=== PATIENT | male | born 1925 | race Caucasian/White ===

== ENCOUNTER 2016-06-20 13:42 | Inpatient (IN) | payer MEDICARE ==
[2016-06-20] MEDS ORDERED: Zofran 4 MG/2 ML VIAL IV ONE (14:12)
[2016-06-20] MEDS ORDERED: Hydromorphone 1 mg/ml Ampule IV ONE ×2 (14:12→18:19)
[2016-06-20] MEDS ORDERED: Hydromorphone 1 mg/ml Ampule ONE ×2 (14:15→18:20)
[2016-06-20] MEDS ORDERED: Sodium Chloride 0.9% 1000 ML 1,000 ML IV SCH (14:15)
[2016-06-20] MEDS ORDERED: Zofran 4 MG/2 ML VIAL ONE (14:15)
[2016-06-20] MEDS ORDERED: Sodium Chloride 0.9% 1000 ML 1,000 ML ONE (14:15)
[2016-06-20 14:37] LABS: BASOPHIL % 0.1 % (0.0-0.4); Granulocytes % 82.9 % (36.0-66.0); Lymphocytes % 7.9 % (24.0-44.0); Mean Cell Volume 89.9 fl (78-100); Mean Corpuscular Hemoglobin 28.7 pg (26-32); Mean Platelet Volume 8.9 fl (6-9.5); Monocytes % 8.1 % (0.0-12.0); Platelet Count 278 K/mm3 (150-450); Red Blood Count 3.76 M/mm3 (4.1-5.6); Red Cell Distribution Width 14.7 % (11.5-14.0); White Blood Count 10.6 K/mm3 (4.0-10.5)
--- NOTE | 2016-06-20 14:44 | ERPHSYRPT ---
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 HAS NO PAIN RELIEF AFTER TAKING METHADONE AND PERCOCET. DENIES FEVER, EMESIS OR DIARRHEA. Timing/Duration: day(s) Activities at Onset: none Quality: cramping Abdominal Pain Onset Location: suprapubic Pain Radiation: no radiation Severity of Pain-Max: moderate Severity of Pain-Current: moderate Modifying Factors: Improves With: nothing Associated Symptoms: other (BLADDER SPASMS) Allergies/Adverse Reactions: oxybutynin Allergy (Intermediate, Verified 06/20/16 13:58) ceftriaxone sodium [From Rocephin] Allergy (Mild, Verified 06/20/16 13:58) rash peanut Allergy (Mild, Verified 06/20/16 13:58) Rash Penicillins Allergy (Mild, Verified 06/20/16 13:58) rash primidone Allergy (Mild, Verified 06/20/16 13:58) Swelling selegiline Allergy (Mild, Verified 06/20/16 13:58) Swelling topiramate Allergy (Mild, Verified 06/20/16 13:58) Swelling levomilnacipran HCl [From Fetzima] Allergy (Verified 06/20/16 13:58) nitrofurantoin [From Macrobid] Allergy (Verified 06/20/16 13:58) nitrofurantoin macrocrystalline [From Macrobid] Allergy (Verified 06/20/16 13:58 ) nitroglycerin Allergy (Verified 06/20/16 13:58) unsure of reaction leflunomide Adverse Reaction (Intermediate, Verified 06/20/16 13:58) Sulfa (Sulfonamide Antibiotics) [Sulfa(Sulfonamide Antibiotics)] Adverse Reaction (Mild, Verified 06/20/16 13:58) frequent voiding vancomycin Adverse Reaction (Mild, Verified 06/20/16 13:58) shakes meperidine HCl [From Demerol] Adverse Reaction (Verified 06/20/16 13:58) low bp pantoprazole sodium [From Protonix] Adverse Reaction (Verified 06/20/16 13:58) Home Medications: Albuterol Sulfate [Albuterol Sulfate Hfa] 2 puffs IH Q4HPRN PRN #0 10/29/11 [ History] Albuterol/Ipratropium 3ml Neb* [DUONEB 0.5-3 MG/3 ml Neb] 3 ml NEBULIZE UD #0 10/29/11 [History] Prednisone 5 mg [Deltasone 5 mg] 20 mg PO DAILY #0 10/29/11 [History] Sennosides/Docusate Sodium [Stool Softener Tablet] 1 each PO TID 10/30/11 [ History] Apixaban [Eliquis] 2.5 mg PO BID 04/14/15 [History] Tamsulosin HCl [Flomax] 0.4 mg PO QHS 04/14/15 [History] Lactulose 20 gm PO DAILY 06/12/15 [History] Oxycodone HCl/Acetaminophen [Percocet 10-325 mg Tablet] 1 ea PO Q4-6HPRN PRN [History] Triamcinolone Acetonide [Nasacort] 2 spray IH HS 11/27/15 [History] Cephalexin Mh 500 mg [Keflex 500 mg] 500 mg PO TID 06/20/16 [History] Duloxetine HCl 30 mg [Cymbalta 30 MG Capsule] 30 mg PO DAILY 06/20/16 [ History] Methadone HCl 10 mg [DOLOPHINE 10MG Tablet] 10 mg PO BID 06/20/16 [History ] Hx Tetanus, Diphtheria Vaccination/Date Given: No Hx Influenza Vaccination/Date Given: No Hx Pneumococcal Vaccination/Date Given: Yes Immunizations Up to Date: Yes - Review of Systems Constitutional: No Fever, No Chills Eyes: No Symptoms Ears, Nose, & Throat: No Symptoms Respiratory: No Cough, No Dyspnea Cardiac: No Chest Pain, No Edema, No Syncope Abdominal/Gastrointestinal: No Abdominal Pain, No Nausea, No Vomiting, No Diarrhea Genitourinary Symptoms: Other (BLADDER SPASMS), No Dysuria Musculoskeletal: No Back Pain, No Neck Pain Skin: No Rash Neurological: No Dizziness, No Focal Weakness, No Sensory Changes Psychological: No Symptoms Endocrine: No Symptoms All Other Systems: Reviewed and Negative - Past Medical History Pertinent Past Medical History: Yes Neurological History: Peripheral Neuropathy, Other ENT History: Cataracts Cardiac History: No Pertinent History Respiratory History: Asthma, COPD Endocrine Medical History: No Pertinent History Musculoskeletal History: Osteoarthritis, Rheumatoid Arthritis, Other GI Medical History: Diverticulitis, GERD, Hemorrhoids, Hernia History: Other Psycho-Social History: Depression Male Reproductive Disorders: Prostate Cancer Other Medical History: PARKINSON'S, NEUROPATHY, SPINAL STENOSIS, PROSTATE CANCER , SKIN CANCER, torn rotator cuff in right shoulder - Past Surgical History Past Surgical History: Yes (colon obstruction 2014,) Neuro Surgical History: No Pertinent History Cardiac: Cardiac Catheterization Respiratory: No Pertinent History Gastrointestinal: Appendectomy, Bowel Surgery, Hernia Repair Genitourinary: No Pertinent History Musculoskeletal: Orthopedic Surgery Male Surgical History: Prostate Surgery Other Surgical History: TONSILS. BOWEL RESECTION. EGD. COLONSCOPIES. bilateral SHOULDER SURGERY. CATARACT SURGERIES - Social History Smoking Status: Never smoker Exposure to second hand smoke: No Alcohol Use: None Drug Use: marijuana Patient Lives Alone: No Significant Family History: no pertinent family hx - Nursing Vital Signs Nursing Vital Signs: Initial Vital Signs Temperature 98.3 F Temperature Source Oral Pulse Rate 65 Respiratory Rate 18 Blood Pressure [Left Arm] 122/55 Pain Intensity 10 - Physical Exam General Appearance: no apparent distress, alert Eye Exam: PERRL/EOMI, eyes nml inspection Ears, Nose, Throat Exam: normal ENT inspection, pharynx normal, moist mucous membranes Neck Exam: normal inspection, non-tender, supple, full range of motion Respiratory Exam: normal breath sounds, lungs clear, No respiratory distress Cardiovascular Exam: regular rate/rhythm, normal heart sounds Gastrointestinal/Abdomen Exam: soft, normal bowel sounds, No tenderness ( SUPRAPUBIC TENDERNESS), No mass Back Exam: normal inspection, normal range of motion, No CVA tenderness, No vertebral tenderness Extremity Exam: normal inspection, normal range of motion, pelvis stable Neurologic Exam: alert, oriented x 3, cooperative, normal mood/affect, nml cerebellar function, sensation nml, No motor deficits Skin Exam: normal color, warm, dry SpO2: 99 Ordered Tests: Active Orders 24 hr Category Date Time Status Up With Assistance ROUTINE Activity 06/20/16 17:55 Active Accucheck Q4H Care 06/20/16 17:55 Active Admission/Status Order ROUTINE Care 06/20/16 17:55 Active Call Admit Doctor for Orders ON ADMISSION Care 06/20/16 17:56 Active Clean Catch Urine Specimen STAT Care 06/20/16 14:12 Active Code Status Order ROUTINE Care 06/20/16 17:55 Active IV Care Q6H Care 06/20/16 17:55 Active IV Insertion STAT Care 06/20/16 14:12 Active Oxygen-ED Only NASAL CANNULA 2 lpm Care 06/20/16 14:39 Active Telemetry ROUTINE Care 06/20/16 17:55 Active Vital Signs Q4H Care 06/20/16 17:55 Active Regular Diet Diet 06/20/16 Breakfast Active BLOOD CULTURE Stat Lab 06/20/16 14:20 Received CBC W DIFF Stat Lab 06/20/16 14:35 Completed CMP Stat Lab 06/20/16 14:35 Completed UA W/ MICROSCOPIC Stat Lab 06/20/16 14:35 Completed Oxygen NASAL CANNULA 2 lpm RT 06/20/16 17:55 Active Transfer Order Routine Transfer 06/20/16 17:52 Ordered Medication Summary Generic Name Dose Route Start Last Admin Trade Name Freq PRN Reason Stop Dose Admin Acetaminophen 650 mg 06/20/16 17:55 Tylenol 325 Mg PO 07/20/16 17:54 Q4H PRN PRN PAIN AND/OR FEVER Albuterol/Ipratropium 3 ml 06/20/16 17:55 Duoneb 0.5-3 Mg/3 Ml Neb IH 07/20/16 17:54 Q4HPRN PRN SHORTNESS OF BREATH/WHEEZING Sodium Chloride 1,000 mls @ 100 mls/hr 06/20/16 14:15 06/20/16 14:28 Sodium Chloride 0.9% 1000 Ml IV 07/20/16 14:14 100 mls/hr .Q10H DAVY Administration Linezolid 300 mls @ 150 mls/hr 06/20/16 22:00 06/20/16 16:50 Zyvox 600 Mg Iv Premix IV 07/20/16 21:59 150 mls/hr Q12HT DAVY Administration Sodium Chloride 1,000 mls @ 50 mls/hr 06/20/16 18:00 Sodium Chloride 0.9% 1000 Ml IV 07/20/16 17:59 .Q20H DAVY Morphine Sulfate 2 mg 06/20/16 17:55 Morphine Sulfate 2 Mg Inj IV 06/25/16 17:54 Q4H PRN PRN PAIN Ondansetron HCl 4 mg 06/20/16 17:55 Zofran 4 Mg/2 Ml Vial IV 07/20/16 17:54 Q6H PRN PRN NAUSEA/VOMITING Discontinued Medications Generic Name Dose Route Start Last Admin Trade Name Freq PRN Reason Stop Dose Admin Diphenhydramine HCl 25 mg 06/20/16 15:49 06/20/16 15:53 Benadryl 50 Mg/Ml IV 06/20/16 15:50 25 mg STAT ONE Administration Diphenhydramine HCl Confirm 06/20/16 15:51 Benadryl 50 Mg/Ml Administered 06/20/16 15:52 Dose 50 mg .ROUTE .STK-MED ONE Hydromorphone HCl 1 mg 06/20/16 14:12 06/20/16 14:28 Hydromorphone 1 Mg/Ml Ampule IV 06/20/16 14:13 1 mg STAT ONE Administration Hydromorphone HCl Confirm 06/20/16 14:15 Hydromorphone 1 Mg/Ml Ampule Administered 06/20/16 14:16 Dose 1 mg .ROUTE .STK-MED ONE Levofloxacin/Dextrose 100 mls @ 100 mls/hr 06/20/16 15:02 06/20/16 15:07 Levofloxacin 500mg/100ml D5w IV 06/20/16 16:01 100 mls/hr STAT ONE Administration Levofloxacin/Dextrose Confirm 06/20/16 15:04 Levofloxacin 500mg/100ml D5w Administered 06/20/16 15:05 Dose 100 mls @ ud IV .STK-MED ONE Ondansetron HCl 4 mg 06/20/16 14:12 06/20/16 14:28 Zofran 4 Mg/2 Ml Vial IV 06/20/16 14:13 4 mg STAT ONE Administration Ondansetron HCl Confirm 06/20/16 14:15 Zofran 4 Mg/2 Ml Vial Administered 06/20/16 14:16 Dose 4 mg .ROUTE .STK-MED ONE Phenazopyridine HCl 200 mg 06/20/16 14:47 06/20/16 14:53 Pyridium 200 Mg PO 06/20/16 14:48 200 mg STAT ONE Administration Phenazopyridine HCl Confirm 06/20/16 14:51 Pyridium 200 Mg Administered 06/20/16 14:52 Dose 200 mg .ROUTE .STK-MED ONE Lab/Rad Data: Laboratory Result Diagrams 06/20/16 14:35 06/20/16 14:35 Laboratory Results 06/20/16 06/20/16 06/20/16 Range/Units 14:35 14:35 14:35 WBC 10.6 H (4.0-10.5) K/mm3 RBC 3.76 L (4.1-5.6) M/mm3 Hgb 10.8 L (12.5-18.0) gm/dl Hct 33.8 L (42-50) % MCV 89.9 (78-100) fl MCH 28.7 (26-32) pg MCHC 32.0 (32-36) g/dl RDW 14.7 H (11.5-14.0) % Plt Count 278 (150-450) K/mm3 MPV 8.9 (6-9.5) fl Gran % 82.9 H (36.0-66.0) % Lymphocytes % 7.9 L (24.0-44.0) % Monocytes % 8.1 (0.0-12.0) % Eosinophils % 1.0 (0.00-5.0) % Basophils % 0.1 (0.0-0.4) % Basophils # 0.01 (0-0.4) Sodium 134 L (136-145) mEq/L Potassium 4.5 (3.5-5.1) mEq/L Chloride 101 (98-107) mEq/L Carbon Dioxide 25.8 (21-32) mEq/L Anion Gap 11.8 (5-15) MEQ/L BUN 18 (9-20) mg/dL Creatinine 0.89 (0.55-1.30) mg/dl Estimated GFR > 60 ML/MIN Glucose 115 H (70-110) MG/DL Calcium 8.7 (8.5-10.1) mg/dL Total Bilirubin 0.3 (0.2-1.0) mg/dL AST 30 (15-37) U/L ALT 15 (12-78) U/L Alkaline Phosphatase 98 (46-116) U/L Serum Total Protein 5.9 L (6.4-8.2) gm/dL Albumin 2.4 L (3.4-5.0) g/dL Ur Collection Type VOID Urine Color YELLOW (YELLOW) Urine Appearance SLIGHTLY CLOUDY (CLEAR) Urine pH 8.5 (5-6) Ur Specific [place] 1.015 (1.005-1.025) Urine Protein 30 (Negative) Urine Glucose (UA) NEGATIVE (NEGATIVE) mg/dL Urine Ketones NEGATIVE (NEGATIVE) Urine Nitrite NEGATIVE (NEGATIVE) Urine Bilirubin NEGATIVE (NEGATIVE) Urine Urobilinogen 0.2 (0-1) mg/dL Urine WBC (Auto) SMALL (NEGATIVE) Urine RBC (Auto) TRACE-LYSED (0-5) Cameron/ul Urine Microscopic RBC 2-5 (0-2) /HPF Urine Microscopic WBC 15-25 (0-5) /HPF Ur Epithelial Cells FEW (FEW) /HPF Urine Bacteria MODERATE (NEGATIVE) /HPF Specimen Received 06/20/16 1450 - Progress Progress Note: 06/20/16 17:46 THE PREVIOUS ABDOMINAL PELVIC CT SCAN 06/18/16 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 MILD DIFFUSE URINARY BLADDER WALL THICKENING. PATIENT GIVEN IV FLUIDS, NORMAL SALINE 100ML/HR ZOFRAN 4MG, DILAUDID 1 MG FOR BLADDER SPASM, BEGIN IV LEVAQUIN 500MG D/TODD DUE TO ERYTHEMA LEFT ARM. LEVAQUIN DISCONTINUED. BEGAN LINEZOLID 600MG IVPB Discussed with : Westley (AT 1745 FOR ADMISSION) - Departure Time of Disposition: 18:00 Departure Disposition: Observation Clinical Impression: RECURRENT URINARY TRACT INFECTION, INTRACTABLE PAIN-BLADDER SPASMS Condition: Stable Critical Care Time: No Referrals: JULIO CESAR MONTGOMERY MD [Primary Care Provider] -
[2016-06-20] MEDS ORDERED: PYRIDIUM 200 MG PO ONE (14:47)
[2016-06-20 14:50] LABS: Collection Type VOID; Ph 8.5 (5-6)
[2016-06-20 14:51] LABS: COMPLETE URINE MICROSCOPIC? YES
[2016-06-20] MEDS ORDERED: PYRIDIUM 200 MG ONE (14:51)
[2016-06-20 14:58] LABS: Bacteria MODERATE /HPF (NEGATIVE); Epithelial Cells FEW /HPF (FEW); WBC 15-25 /HPF (0-5)
[2016-06-20] MEDS ORDERED: Levofloxacin 500MG/100ML D5W 100 ML IV ONE ×2 (15:02→15:04)
[2016-06-20 15:06] LABS: ALBUMIN 2.4 g/dL (3.4-5.0); ALKALINE PHOSPHATASE 98 U/L (46-116); ANION GAP 11.8 MEQ/L (5-15); BILIRUBIN,TOTAL 0.3 mg/dL (0.2-1.0); BLOOD UREA NITROGEN 18 mg/dL (9-20); CHLORIDE 101 mEq/L (98-107); Carbon Dioxide 25.8 mEq/L (21-32); Glucose 115 MG/DL (70-110); Potassium 4.5 mEq/L (3.5-5.1); SGOT/AST 30 U/L (15-37); SGPT/ALT 15 U/L (12-78); SODIUM 134 mEq/L (136-145); Total Protein 5.9 gm/dL (6.4-8.2)
[2016-06-20] MEDS ORDERED: BENADRYL 50 MG/ML IV ONE (15:49)
[2016-06-20] MEDS ORDERED: BENADRYL 50 MG/ML ONE (15:51)
[2016-06-20] MEDS: Zyvox 600 MG IV PREMIX*** 300 ML IV SCH (16:50)
[2016-06-20] MEDS ORDERED: DUONEB 0.5-3 MG/3 ml Neb IH PRN (17:55)
[2016-06-20] MEDS ORDERED: TYLENOL 325 MG PO PRN (17:55)
[2016-06-20] MEDS ORDERED: PHARMACY DOSING REQUIRED: GENTAMICIN IV ONE (19:24)
[2016-06-20] MEDS ORDERED: GENTAMICIN 80 MG/50 ML PREMIX*** 50 ML IV ONE (20:00)
[2016-06-20] MEDS ORDERED: ZOFRAN ODT 4 MG PO PRN (20:40)
[2016-06-20] MEDS: OXYCODONE-ACETAMINOPHEN 10-325 PO PRN (20:47)
[2016-06-20] MEDS: DOLOPHINE 10MG Tablet PO SCH (21:37)
[2016-06-20] MEDS: Sinemet 25/250 MG PO SCH (21:37)
[2016-06-20] MEDS: ELIQUIS PO SCH (21:37)
[2016-06-20] MEDS: Flomax 0.4 MG PO SCH (21:37)
[2016-06-20] MEDS: Cymbalta 30 MG Capsule PO SCH (21:37)
[2016-06-20] MEDS: Colace 100 MG PO SCH (21:37)
[2016-06-20] MEDS ORDERED: Flonase NASAL NS SCH (22:00)
[2016-06-20] MEDS: Zofran 4 MG/2 ML VIAL IV PRN (22:29)
[2016-06-20] MEDS ORDERED: MORPHINE SULFATE 4 MG INJ ONE (22:34)
[2016-06-20] MEDS: MORPHINE SULFATE 2 MG INJ IV PRN (22:35)
[2016-06-21] MEDS: DUONEB 0.5-3 MG/3 ml Neb IH SCH ×4 (00:25→17:32)
[2016-06-21] MEDS: OXYCODONE-ACETAMINOPHEN 10-325 PO PRN ×5 (01:03→20:11)
[2016-06-21] MEDS: MORPHINE SULFATE 2 MG INJ IV PRN ×5 (03:05→23:02)
[2016-06-21 05:46] LABS: BLOOD UREA NITROGEN 12 mg/dL (9-20); CHLORIDE 103 mEq/L (98-107); Carbon Dioxide 25.9 mEq/L (21-32); Glucose 83 MG/DL (70-110); Potassium 3.9 mEq/L (3.5-5.1); SODIUM 134 mEq/L (136-145)
[2016-06-21] MEDS: Sodium Chloride 0.9% 1000 ML 1,000 ML IV SCH (05:50)
[2016-06-21] MEDS ORDERED: DUONEB 0.5-3 MG/3 ml Neb IH ONE (06:44)
[2016-06-21] MEDS: ADVAIR 250-50 DISKUS 14 DOSE IH SCH ×2 (06:58→17:32)
[2016-06-21] MEDS ORDERED: Advair Hfa 115/21 Common canister IH SCH (07:00)
[2016-06-21] MEDS ORDERED: MILK OF MAGNESIA 30 ML PO PRN (07:12)
[2016-06-21] MEDS ORDERED: Dulcolax 10 MG SUPP RC PRN (07:12)
[2016-06-21 07:44] LABS: Mean Cell Volume 90.3 fl (78-100); Mean Corpuscular Hemoglobin 28.9 pg (26-32); Mean Platelet Volume 8.9 fl (6-9.5); Platelet Count 269 K/mm3 (150-450); Red Blood Count 3.39 M/mm3 (4.1-5.6); Red Cell Distribution Width 14.5 % (11.5-14.0); White Blood Count 9.8 K/mm3 (4.0-10.5)
[2016-06-21] MEDS: GENTAMICIN 80 MG/50 ML PREMIX*** 50 ML IV SCH ×2 (08:07→20:08)
--- NOTE | 2016-06-21 08:27 | PCM.HP ---
History of Present Illness - Chief Complaint Chief Complaint: RECURRENT URINARY TRACT INFECTION and acute pain History of Present Illness: is a 89 year old male who was brought to the ER from [place] for severe scrotal, penile and rectal pain. He was initially started on keflex for a uti but then after initial culture MRSA was isolated as well, he has deteriorated despite outpatient antibiotic therapy. His pain is much better controlled since admission, he is on large doses of narcotics chronically, I just took over his care in the last few days since admission to [facility]. - Review of Systems Constitutional: No Fever, No Chills Respiratory: No Cough, No Short Of Breath Cardiac: No Chest Pain, No Edema, No Syncope Abdominal/Gastrointestinal: Abdominal Pain, No Nausea, No Vomiting Genitourinary Symptoms: Dysuria Skin: No Rash Medications & Allergies Home Medications: Home Medication List Albuterol Sulfate [Albuterol Sulfate Hfa] 2 puffs IH QID PRN PRN #0 10/29/11 [ History Confirmed 06/20/16] Albuterol/Ipratropium 3ml Neb* [DUONEB 0.5-3 MG/3 ml Neb] 3 ml NEBULIZE TID # 0 10/29/11 [History Confirmed 06/20/16] Prednisone 5 mg [Deltasone 5 mg] 20 mg PO DAILY #0 10/29/11 [History Confirmed 06/20/16] Apixaban [Eliquis] 2.5 mg PO BID 04/14/15 [History Confirmed 06/20/16] Tamsulosin HCl [Flomax] 0.4 mg PO QHS 04/14/15 [History Confirmed 06/20/16] Lactulose 15 gm PO DAILY 06/12/15 [History Confirmed 06/20/16] Oxycodone HCl/Acetaminophen [Percocet 10-325 mg Tablet] 1 ea PO Q4HPRN PRN 11/26 [History Confirmed 06/20/16] Triamcinolone Acetonide [Nasacort] 2 spray IH HS 11/27/15 [History Confirmed ] Acetaminophen 325 mg [Tylenol 325 mg] 325 mg PO Q4HPRN PRN 06/20/16 [ History Confirmed 06/20/16] Bisacodyl 10 mg [Dulcolax 10 MG SUPP] 10 mg RC DAILY PRN PRN 06/20/16 [ History Confirmed 06/20/16] Calcium Carbonate/Mag Hydrox [Mylanta Ultra Chew Tab] 1 each PO AC 06/20/16 [ History Confirmed 06/20/16] Carbidopa/Levodopa [Sinemet 25-250 mg Tablet] 1 each PO QID 06/20/16 [History Confirmed 06/20/16] Cephalexin Mh 500 mg [Keflex 500 mg] 500 mg PO TID 06/20/16 [History Confirmed 06/20/16] Docusate Sodium 100 mg [Colace 100 MG] 100 mg PO TID 06/20/16 [History Confirmed 06/20/16] Duloxetine HCl 30 mg [Cymbalta 30 MG Capsule] 30 mg PO HS 06/20/16 [ History Confirmed 06/20/16] Fluticasone/Salmeterol [Advair 250-50 Diskus] 1 each IH BID 06/20/16 [History Confirmed 06/20/16] Mag Hydrox/Al Hydrox/Simeth [Maalox Es 30 ml Unit Dose] 30 ml PO Q4H PRN PRN 06/20/16 [History Confirmed 06/20/16] Magnesium Hydroxide 30 ml [Milk of Magnesia 30 ml] 30 ml PO DAILY PRN PRN 06/20/16 [History Confirmed 06/20/16] Methadone HCl 10 mg [DOLOPHINE 10MG Tablet] 10 mg PO BID 06/20/16 [ History Confirmed 06/20/16] Multivitamin with Minerals [Multivitamins with Minerals] 1 each PO DAILY [History Confirmed 06/20/16] Ondansetron HCl [Zofran] 4 mg PO Q6HPRN PRN 06/20/16 [History Confirmed 06/20/16 ] Phenol/Sodium Phenolate [Chloraseptic [place] 180 ml] 1 spray PO Q4HPRN PRN 06/20/16 [History Confirmed 06/20/16] Allergies/Adverse Reactions: Allergies Allergy/AdvReac Type Severity Reaction Status Date / Time oxybutynin Allergy Intermediate Verified 06/20/16 13:58 ceftriaxone sodium Allergy Mild Verified 06/20/16 13:58 [From Rocephin] peanut Allergy Mild Rash Verified 06/20/16 13:58 Penicillins Allergy Mild Verified 06/20/16 13:58 primidone Allergy Mild Swelling Verified 06/20/16 13:58 selegiline Allergy Mild Swelling Verified 06/20/16 13:58 topiramate Allergy Mild Swelling Verified 06/20/16 13:58 levomilnacipran HCl Allergy Verified 06/20/16 13:58 [From Fetzima] nitrofurantoin Allergy Verified 06/20/16 13:58 [From Macrobid] nitrofurantoin Allergy Verified 06/20/16 13:58 macrocrystalline [From Macrobid] nitroglycerin Allergy Verified 06/20/16 13:58 leflunomide AdvReac Intermediate Verified 06/20/16 13:58 Sulfa (Sulfonamide AdvReac Mild Verified 06/20/16 13:58 Antibiotics) [Sulfa(Sulfonamide Antibiotics)] vancomycin AdvReac Mild Verified 06/20/16 13:58 escitalopram [From Lexapro] AdvReac Verified 06/20/16 20:45 meperidine HCl [From Demerol] AdvReac Verified 06/20/16 13:58 pantoprazole sodium AdvReac Verified 06/20/16 13:58 [From Protonix] - Past Medical History Past Medical History: Yes Neurological History: Peripheral Neuropathy, Other ENT History: Cataracts Cardiac History: Arrhythmia Respiratory History: Asthma, COPD Endocrine Medical History: No Pertinent History Musculoskelatal History: Osteoarthritis, Rheumatoid Arthritis, Other GI Medical History: Diverticulitis, GERD, Hemorrhoids, Hernia History: Other Pyscho-Social History: Depression Male Reproductive Disorders: Prostate Cancer Comment: PARKINSON'S, NEUROPATHY, SPINAL STENOSIS, PROSTATE CANCER, SKIN CANCER , torn rotator cuff in right shoulder - Past Surgical History Past Surgical History: Yes (colon obstruction 2014,) Neuro Surgical History: No Pertinent History Cardiac History: Cardiac Catheterization Respiratory Surgery: No Pertinent History GI Surgical History: Appendectomy, Bowel Surgery, Hernia Repair Genitourinary Surgical Hx: No Pertinent History Musculskeletal Surgical Hx: Orthopedic Surgery Male Surgical History: Prostate Surgery Other Surgical History: TONSILS. BOWEL RESECTION. EGD. COLONSCOPIES. bilateral SHOULDER SURGERY. CATARACT SURGERIES - Social History Smoking Status: Former smoker Exposure to second hand smoke: No Alcohol: None Drug Use: none Significant Family History: no pertinent family hx - Physical Exam Vital Signs: Vital Signs - 24 hr Temp Pulse Resp BP Pulse Ox 06/21/16 08:00 97.7 F 72 20 123/59 96 06/21/16 07:02 65 16 95 06/21/16 03:25 98.0 F 68 19 108/62 94 L 06/21/16 00:26 71 14 96 06/21/16 00:00 97.9 F 67 18 127/68 98 06/20/16 20:40 98.5 F 63 22 159/71 100 06/20/16 20:00 98.5 F 63 22 159/71 100 06/20/16 19:40 67 18 97 06/20/16 18:14 125/57 06/20/16 18:11 99 06/20/16 16:57 65 18 122/55 99 06/20/16 15:57 63 18 133/55 100 06/20/16 14:38 72 22 137/52 98 06/20/16 13:44 98.3 F 70 18 123/58 99 Oxygen-Last 24 hours O2 Percentage 2 Liters = 28% O2 Percentage 2 Liters = 28% General Appearance: thin Neurologic Exam: alert, oriented x 3 Respiratory Exam: normal breath sounds, lungs clear, No respiratory distress Cardiovascular Exam: regular rate/rhythm, normal heart sounds, normal peripheral pulses Gastrointestinal/Abdomen Exam: soft, normal bowel sounds, No tenderness, No mass Skin Exam: normal color, warm, dry, No rash Results - Labs Lab/Micro Results: Lab Results-Last 24 Hours 06/21/16 06/21/16 Range/Units 05:15 05:15 WBC 9.8 (4.0-10.5) K/mm3 RBC 3.39 L (4.1-5.6) M/mm3 Hgb 9.8 L (12.5-18.0) gm/dl Hct 30.6 L (42-50) % MCV 90.3 (78-100) fl MCH 28.9 (26-32) pg MCHC 32.0 (32-36) g/dl RDW 14.5 H (11.5-14.0) % Plt Count 269 (150-450) K/mm3 MPV 8.9 (6-9.5) fl Sodium 134 L (136-145) mEq/L Potassium 3.9 (3.5-5.1) mEq/L Chloride 103 (98-107) mEq/L Carbon Dioxide 25.9 (21-32) mEq/L Anion Gap 9.0 (5-15) MEQ/L BUN 12 (9-20) mg/dL Creatinine 0.78 (0.55-1.30) mg/dl Estimated GFR > 60 ML/MIN Glucose 83 (70-110) MG/DL Calcium 8.5 (8.5-10.1) mg/dL - Other Procedures and Tests Respiratory Therapy 06/20/16 17:55 Oxygen NASAL CANNULA 2 lpm 06/20/16 19:00 neb [Respiratory Nebulizer] TID 06/20/16 22:24 Respiratory MDI BID Assessment/Plan (1) UTI (lower urinary tract infection) Current Visit: No Status: Acute Assessment & Plan: patient with ESBL+ e coli and MRSA in urine culture, will continue IV gent and linezolid based on c and s results. 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 Code(s): R10.9 - UNSPECIFIED ABDOMINAL PAIN
[2016-06-21] MEDS: Colace 100 MG PO SCH ×3 (09:06→22:05)
[2016-06-21] MEDS: LACTULOSE 20 GM/30ML UD CUP PO SCH (09:06)
[2016-06-21] MEDS: ELIQUIS PO SCH ×2 (09:06→22:04)
[2016-06-21] MEDS: DELTASONE 20 MG PO SCH (09:06)
[2016-06-21] MEDS: DOLOPHINE 10MG Tablet PO SCH ×2 (09:06→22:05)
[2016-06-21] MEDS: THERAGRAN MULTIVITAMIN PO SCH (09:06)
[2016-06-21] MEDS: Zyvox 600 MG IV PREMIX*** 300 ML IV SCH ×2 (09:07→22:03)
[2016-06-21] MEDS ORDERED: MULTIVITAMIN WITH MINERALS PO SCH (10:00)
[2016-06-21] MEDS ORDERED: DELTASONE 5 MG PO SCH (10:00)
[2016-06-21] MEDS: Sinemet 25/250 MG PO SCH ×4 (10:27→22:04)
[2016-06-21] MEDS: Cymbalta 30 MG Capsule PO SCH (22:05)
[2016-06-21] MEDS: Flomax 0.4 MG PO SCH (22:05)
[2016-06-21] MEDS: Flonase NASAL NS SCH (22:06)
[2016-06-22] MEDS: OXYCODONE-ACETAMINOPHEN 10-325 PO PRN ×4 (02:43→23:47)
[2016-06-22] MEDS: MORPHINE SULFATE 2 MG INJ IV PRN ×3 (06:30→20:32)
[2016-06-22] MEDS: Sodium Chloride 0.9% 1000 ML 1,000 ML IV SCH (06:37)
[2016-06-22] MEDS: DUONEB 0.5-3 MG/3 ml Neb IH SCH ×3 (07:01→18:54)
[2016-06-22] MEDS ORDERED: TROUGH DRUG LEVELS IJ ONE (07:30)
[2016-06-22 07:49] LABS: Mean Cell Volume 89.3 fl (78-100); Mean Corpuscular Hemoglobin 28.5 pg (26-32); Mean Platelet Volume 8.3 fl (6-9.5); Platelet Count 243 K/mm3 (150-450); Red Blood Count 3.54 M/mm3 (4.1-5.6); Red Cell Distribution Width 14.5 % (11.5-14.0); White Blood Count 8.9 K/mm3 (4.0-10.5)
[2016-06-22] MEDS: GENTAMICIN 80 MG/50 ML PREMIX*** 50 ML IV SCH ×2 (08:05→19:48)
[2016-06-22] MEDS: MAALOX ES 30 ML UNIT DOSE PO PRN ×2 (08:14→17:01)
--- NOTE | 2016-06-22 08:42 | PCM.NOTE ---
Date and Time: 06/22/16840 Subjective Assessment: patient doing ok, still with significant bladder spasms and pain but is better controlled than prior to admission Objective Exam General Appearance: no apparent distress, alert, thin Respiratory Exam: normal breath sounds, lungs clear, No respiratory distress Cardiovascular Exam: regular rate/rhythm, normal heart sounds Extremity Exam: other (right arm in sling) OBJECTIVE DATA Vital Signs: Vital Signs - 24 hr Temp Pulse Resp BP Pulse Ox 06/22/16 07:15 98.3 F 63 18 150/77 97 06/22/16 07:04 68 18 97 06/22/16 04:00 97.6 F 67 17 128/61 97 06/22/16 00:00 98.4 F 74 18 187/74 97 06/21/16 20:00 98.4 F 70 20 124/68 97 06/21/16 17:34 75 20 97 06/21/16 16:00 98.7 F 76 20 114/81 98 06/21/16 11:20 98.5 F 66 20 111/56 99 Pain Assessment - Last Documented Pain Intensity 6 Pain Scale Used 0-10 Pain Scale Intake and Output: Intake & Output 06/19/16 06/20/16 06/21/16 06/22/16 11:59 11:59 11:59 11:59 Intake Total 857 3314 Output Total 475 550 Balance 382 2764 Weight 51.908 kg Lab Results: Lab Results-Last 24 Hours 06/22/16 06/22/16 Range/Units 07:35 07:35 WBC 8.9 (4.0-10.5) K/mm3 RBC 3.54 L (4.1-5.6) M/mm3 Hgb 10.1 L (12.5-18.0) gm/dl Hct 31.6 L (42-50) % MCV 89.3 (78-100) fl MCH 28.5 (26-32) pg MCHC 32.0 (32-36) g/dl RDW 14.5 H (11.5-14.0) % Plt Count 243 (150-450) K/mm3 MPV 8.3 (6-9.5) fl Gentamicin Trough 1.6 ug/ML Multi-Disciplinary Progress Notes: Multi-Disciplinary Progress Notes 06/21/16 11:25 (created 06/21/16 14:46) Case Management Note by Leigha Ewing SPOKE WITH BIA ABOUT DISCUSSING SERVICES WITH FAMILY PER THEIR REQUEST. BIA TO MAKE ARRANGEMENTS TO SEE FAMILY ON 06/22/16. WILL CONTINUE TO FOLLOW AND ASSESS FOR ALL DC NEEDS. 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
[2016-06-22 08:44] LABS: ANION GAP 8.6 MEQ/L (5-15); BLOOD UREA NITROGEN 13 mg/dL (9-20); CHLORIDE 103 mEq/L (98-107); Carbon Dioxide 27.9 mEq/L (21-32); Glucose 72 MG/DL (70-110); Potassium 4.3 mEq/L (3.5-5.1); SODIUM 135 mEq/L (136-145)
[2016-06-22] MEDS: Colace 100 MG PO SCH ×3 (08:55→21:47)
[2016-06-22] MEDS: ELIQUIS PO SCH ×2 (08:55→21:46)
[2016-06-22] MEDS: DELTASONE 20 MG PO SCH (08:56)
[2016-06-22] MEDS: THERAGRAN MULTIVITAMIN PO SCH (08:56)
[2016-06-22] MEDS: LACTULOSE 20 GM/30ML UD CUP PO SCH (08:57)
[2016-06-22] MEDS: Sinemet 25/250 MG PO SCH ×4 (08:57→21:50)
[2016-06-22] MEDS ORDERED: PEAK DRUG LEVELS IJ ONE (09:00)
[2016-06-22] MEDS: Zyvox 600 MG IV PREMIX*** 300 ML IV SCH ×2 (09:06→21:47)
[2016-06-22] MEDS: DOLOPHINE 10MG Tablet PO SCH ×2 (11:17→21:47)
[2016-06-22] MEDS: Zofran 4 MG/2 ML VIAL IV PRN (11:25)
[2016-06-22] MEDS ORDERED: DUONEB 0.5-3 MG/3 ml Neb IH ONE (13:09)
[2016-06-22] MEDS: ADVAIR 250-50 DISKUS 14 DOSE IH SCH (18:55)
[2016-06-22] MEDS: Flomax 0.4 MG PO SCH (21:46)
[2016-06-22] MEDS: Cymbalta 30 MG Capsule PO SCH (21:46)
[2016-06-22] MEDS: Flonase NASAL NS SCH (21:46)
[2016-06-23] MEDS: MORPHINE SULFATE 2 MG INJ IV PRN ×3 (02:17→19:43)
[2016-06-23] MEDS: OXYCODONE-ACETAMINOPHEN 10-325 PO PRN ×5 (04:47→23:00)
[2016-06-23] MEDS: Sodium Chloride 0.9% 1000 ML 1,000 ML IV SCH ×2 (04:48→08:59)
[2016-06-23] MEDS: ADVAIR 250-50 DISKUS 14 DOSE IH SCH ×3 (05:33→20:15)
[2016-06-23 05:36] LABS: Mean Cell Volume 89.3 fl (78-100); Mean Corpuscular Hemoglobin 28.6 pg (26-32); Mean Platelet Volume 8.3 fl (6-9.5); Platelet Count 242 K/mm3 (150-450); Red Blood Count 3.46 M/mm3 (4.1-5.6); Red Cell Distribution Width 14.4 % (11.5-14.0); White Blood Count 9.4 K/mm3 (4.0-10.5)
[2016-06-23 06:05] LABS: ANION GAP 8.2 MEQ/L (5-15); BLOOD UREA NITROGEN 9 mg/dL (9-20); CHLORIDE 103 mEq/L (98-107); Carbon Dioxide 25.4 mEq/L (21-32); Glucose 84 MG/DL (70-110); Potassium 4.1 mEq/L (3.5-5.1); SODIUM 133 mEq/L (136-145)
[2016-06-23] MEDS: DUONEB 0.5-3 MG/3 ml Neb IH SCH ×3 (07:06→20:12)
[2016-06-23 07:13] LABS: Eosinophil 4 % (0.00-3.0); Platelet Estimate NORMAL (NORMAL); Total Cells Counted 100; Toxic Granulation 1+
[2016-06-23] MEDS: MAALOX ES 30 ML UNIT DOSE PO PRN ×3 (07:16→16:04)
[2016-06-23] MEDS: GENTAMICIN 80 MG/50 ML PREMIX*** 50 ML IV SCH ×2 (07:25→20:22)
--- NOTE | 2016-06-23 07:52 | PCM.NOTE ---
Date and Time: 06/23/16 0751 Subjective Assessment: patient doing better, still has pain but improving. hx of prostate cancer in the past. still has significant rectal and penile pain Objective Exam General Appearance: no apparent distress, thin Neurologic Exam: alert Skin Exam: normal color, warm, dry Respiratory Exam: normal breath sounds, lungs clear, No respiratory distress Cardiovascular Exam: regular rate/rhythm, normal heart sounds Gastrointestinal/Abdomen Exam: soft, No tenderness, No mass OBJECTIVE DATA Vital Signs: Vital Signs - 24 hr Temp Pulse Resp BP Pulse Ox 06/23/16 07:25 98.1 F 64 18 128/60 97 06/23/16 07:07 64 18 96 06/23/16 04:00 97.9 F 73 22 139/72 96 06/22/16 23:23 97.8 F 66 21 106/55 98 06/22/16 19:59 98.1 F 68 20 116/56 97 06/22/16 18:55 68 18 97 06/22/16 16:00 98.6 F 71 18 157/71 96 06/22/16 13:10 67 18 96 06/22/16 10:41 98.3 F 63 18 111/59 96 Pain Assessment - Last Documented Pain Intensity 0 Pain Scale Used 0-10 Pain Scale Intake and Output: Intake & Output 06/20/16 06/21/16 06/22/16 06/23/16 11:59 11:59 11:59 11:59 Intake Total 857 3594 1406 Output Total 475 550 Balance 382 3044 1406 Weight 51.908 kg 51.908 kg Lab Results: Lab Results-Last 24 Hours 06/22/16 06/22/16 06/22/16 Range/Units 07:35 07:35 09:00 WBC (4.0-10.5) K/mm3 RBC (4.1-5.6) M/mm3 Hgb (12.5-18.0) gm/dl Hct (42-50) % MCV (78-100) fl MCH (26-32) pg MCHC (32-36) g/dl RDW (11.5-14.0) % Plt Count (150-450) K/mm3 MPV (6-9.5) fl Segmented Neutrophils (36.-66.) % Lymphocytes (Manual) (24-44) % Monocytes (Manual) (0.0-12.0) % Eosinophils (Manual) (0.00-3.0) % Differential Comment Toxic Granulation Platelet Estimate (NORMAL) Sodium 135 L (136-145) mEq/L Potassium 4.3 (3.5-5.1) mEq/L Chloride 103 (98-107) mEq/L Carbon Dioxide 27.9 (21-32) mEq/L Anion Gap 8.6 (5-15) MEQ/L BUN 13 (9-20) mg/dL Creatinine 0.71 (0.55-1.30) mg/dl Estimated GFR > 60 ML/MIN Glucose 72 (70-110) MG/DL Calcium 8.6 (8.5-10.1) mg/dL Gentamicin Peak 6.2 ug/mL Gentamicin Trough 1.6 ug/ML 06/23/16 06/23/16 Range/Units 05:22 05:22 WBC 9.4 (4.0-10.5) K/mm3 RBC 3.46 L (4.1-5.6) M/mm3 Hgb 9.9 L (12.5-18.0) gm/dl Hct 30.9 L (42-50) % MCV 89.3 (78-100) fl MCH 28.6 (26-32) pg MCHC 32.0 (32-36) g/dl RDW 14.4 H (11.5-14.0) % Plt Count 242 (150-450) K/mm3 MPV 8.3 (6-9.5) fl Segmented Neutrophils 59 (36.-66.) % Lymphocytes (Manual) 31 (24-44) % Monocytes (Manual) 6 (0.0-12.0) % Eosinophils (Manual) 4 H (0.00-3.0) % Differential Comment NORMAL Toxic Granulation 1+ Platelet Estimate NORMAL (NORMAL) Sodium 133 L (136-145) mEq/L Potassium 4.1 (3.5-5.1) mEq/L Chloride 103 (98-107) mEq/L Carbon Dioxide 25.4 (21-32) mEq/L Anion Gap 8.2 (5-15) MEQ/L BUN 9 (9-20) mg/dL Creatinine 0.67 (0.55-1.30) mg/dl Estimated GFR > 60 ML/MIN Glucose 84 (70-110) MG/DL Calcium 8.5 (8.5-10.1) mg/dL Gentamicin Peak ug/mL Gentamicin Trough ug/ML Multi-Disciplinary Progress Notes: Multi-Disciplinary Progress Notes 06/22/16 14:47 Case Management Note by Leigha Ewing CALL TO [facility]. SPOKE WITH JSAON. JASON REPORTS THAT PT HAS USED 23 SKILLED DAYS. FAMILY HAS BEEN QUESTIONING SWING BED PROGRAM. DISCUSSED SKILLS FOR SWING BED. WILL CONTINUE TO FOLLOW AND ASSESS FOR ALL DC NEEDS. Initialized on 06/22/16 14:47 - END OF NOTE 06/22/16 12:30 (created 06/22/16 14:03) Case Management Note by Leigha Ewing DISCHARGE PLAN REVIEWED WITH /DAUGHTER. CONTINUE TO EXPLORE OPTIONS FOR DISCHARGE. AGAIN, REPORTS HOW UNHAPPY PT IS AT THE RESIDENTIAL AND CONTEMPLATING TAKING HIM HOME ON DISCHARGE. /DAUGHTER REQUESTS TO SPEAK WITH [facility]. [facility] TO REPORT TO [facility]. BIA PLANNING TO SEE PT TODAY. 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
[2016-06-23] MEDS: Zyvox 600 MG IV PREMIX*** 300 ML IV SCH ×2 (08:59→21:54)
[2016-06-23] MEDS: Colace 100 MG PO SCH ×3 (09:00→21:51)
[2016-06-23] MEDS: ELIQUIS PO SCH ×2 (09:00→21:52)
[2016-06-23] MEDS: THERAGRAN MULTIVITAMIN PO SCH (09:01)
[2016-06-23] MEDS: DOLOPHINE 10MG Tablet PO SCH ×2 (09:01→21:52)
[2016-06-23] MEDS: LACTULOSE 20 GM/30ML UD CUP PO SCH (09:01)
[2016-06-23] MEDS: DELTASONE 20 MG PO SCH (09:01)
[2016-06-23] MEDS: Sinemet 25/250 MG PO SCH ×4 (09:21→21:52)
[2016-06-23] MEDS: Zofran 4 MG/2 ML VIAL IV PRN (12:56)
[2016-06-23] MEDS: Cymbalta 30 MG Capsule PO SCH (21:51)
[2016-06-23] MEDS: Flomax 0.4 MG PO SCH (21:51)
[2016-06-23] MEDS: Flonase NASAL NS SCH (21:51)
[2016-06-24] MEDS: MORPHINE SULFATE 2 MG INJ IV PRN ×2 (02:52→07:43)
[2016-06-24] MEDS: OXYCODONE-ACETAMINOPHEN 10-325 PO PRN ×5 (05:01→22:43)
[2016-06-24 05:47] LABS: Mean Cell Volume 88.4 fl (78-100); Mean Corpuscular Hemoglobin 28.4 pg (26-32); Mean Platelet Volume 8.5 fl (6-9.5); Platelet Count 256 K/mm3 (150-450); Red Blood Count 3.45 M/mm3 (4.1-5.6); Red Cell Distribution Width 14.3 % (11.5-14.0); White Blood Count 8.6 K/mm3 (4.0-10.5)
[2016-06-24 06:19] LABS: ALBUMIN 2.1 g/dL (3.4-5.0); ALKALINE PHOSPHATASE 70 U/L (46-116); ANION GAP 12.1 MEQ/L (5-15); BILIRUBIN,TOTAL 0.3 mg/dL (0.2-1.0); BLOOD UREA NITROGEN 8 mg/dL (9-20); CHLORIDE 101 mEq/L (98-107); Carbon Dioxide 26.4 mEq/L (21-32); Glucose 78 MG/DL (70-110); Potassium 3.9 mEq/L (3.5-5.1); SGOT/AST 17 U/L (15-37); SGPT/ALT 10 U/L (12-78); SODIUM 136 mEq/L (136-145); Total Protein 5.1 gm/dL (6.4-8.2)
[2016-06-24 07:03] LABS: Eosinophil 1 % (0.00-3.0); Total Cells Counted 100
[2016-06-24 07:04] LABS: ANISOCYTOSIS 2+; Platelet Estimate NORMAL (NORMAL); Poikilocytosis 2+
[2016-06-24] MEDS: DUONEB 0.5-3 MG/3 ml Neb IH SCH ×3 (07:05→19:50)
[2016-06-24] MEDS: ADVAIR 250-50 DISKUS 14 DOSE IH SCH ×2 (07:05→19:50)
[2016-06-24] MEDS: GENTAMICIN 80 MG/50 ML PREMIX*** 50 ML IV SCH ×2 (07:42→20:58)
--- NOTE | 2016-06-24 07:52 | PCM.NOTE ---
Date and Time: 06/24/16 0751 Subjective Assessment: patient still c/o severe bladder spasms, feels worse today than yesterday. no fever, labs are reassuring Objective Exam General Appearance: thin Skin Exam: normal color, warm, dry Respiratory Exam: normal breath sounds, lungs clear, No respiratory distress Cardiovascular Exam: regular rate/rhythm, normal heart sounds Gastrointestinal/Abdomen Exam: soft, No tenderness, No mass OBJECTIVE DATA Vital Signs: Vital Signs - 24 hr Temp Pulse Resp BP Pulse Ox 06/24/16 07:07 62 18 97 06/24/16 04:00 98.6 F 68 18 112/61 97 06/24/16 00:00 98.4 F 71 18 148/69 96 06/23/16 20:15 65 18 97 06/23/16 20:00 98.5 F 67 19 138/67 98 06/23/16 16:00 98.5 F 67 20 129/63 98 06/23/16 11:39 98.1 F 64 18 87/50 97 Pain Assessment - Last Documented Pain Intensity 9 Pain Scale Used [facility] Intake and Output: Intake & Output 06/21/16 06/22/16 06/23/16 06/24/16 11:59 11:59 11:59 11:59 Intake Total 857 3594 1646 1706 Output Total 475 550 400 Balance 382 3044 1646 1306 Weight 51.908 kg 51.908 kg Lab Results: Lab Results-Last 24 Hours 06/23/16 06/24/16 06/24/16 Range/Units 07:50 05:21 05:21 WBC 8.6 (4.0-10.5) K/mm3 RBC 3.45 L (4.1-5.6) M/mm3 Hgb 9.8 L (12.5-18.0) gm/dl Hct 30.5 L (42-50) % MCV 88.4 (78-100) fl MCH 28.4 (26-32) pg MCHC 32.1 (32-36) g/dl RDW 14.3 H (11.5-14.0) % Plt Count 256 (150-450) K/mm3 MPV 8.5 (6-9.5) fl Segmented Neutrophils 65 (36.-66.) % Lymphocytes (Manual) 29 (24-44) % Monocytes (Manual) 5 (0.0-12.0) % Eosinophils (Manual) 1 (0.00-3.0) % Differential Comment ABNORMAL Platelet Estimate NORMAL (NORMAL) Poikilocytosis 2+ Anisocytosis 2+ Sodium 136 (136-145) mEq/L Potassium 3.9 (3.5-5.1) mEq/L Chloride 101 (98-107) mEq/L Carbon Dioxide 26.4 (21-32) mEq/L Anion Gap 12.1 (5-15) MEQ/L BUN 8 L (9-20) mg/dL Creatinine 0.75 (0.55-1.30) mg/dl Estimated GFR > 60 ML/MIN Glucose 78 (70-110) MG/DL Calcium 8.4 L (8.5-10.1) mg/dL Total Bilirubin 0.3 (0.2-1.0) mg/dL AST 17 (15-37) U/L ALT 10 L (12-78) U/L Alkaline Phosphatase 70 (46-116) U/L Serum Total Protein 5.1 L (6.4-8.2) gm/dL Albumin 2.1 L (3.4-5.0) g/dL PSA Diagnostic < 0.13 L (0.13-4.00) ng/mL Multi-Disciplinary Progress Notes: Multi-Disciplinary Progress Notes 06/23/16 17:50 Case Management Note by Jacqueline Dickinson SPOKE WITH DAUGHTER AND STILL WANTING SWING BED SERVICES WILL CONT TO MONITOR ALL NEEDS. Initialized on 06/23/16 17:50 - END OF NOTE 06/23/16 13:01 Respiratory Note by Edie Farrell 1300 TX NOT GIVEN PT VOMITING Initialized on 06/23/16 13:01 - END OF NOTE 06/23/16 10:02 Case Management Note by Jacqueline Dickinson AN IMPORTANT MESSAGE FROM MEDICARE GIVEN TO PT SIGNED AND COPY TO CHART. 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
[2016-06-24] MEDS: MAALOX ES 30 ML UNIT DOSE PO PRN ×2 (07:57→16:42)
[2016-06-24] MEDS: Sodium Chloride 0.9% 1000 ML 1,000 ML IV SCH (09:57)
[2016-06-24] MEDS: LACTULOSE 20 GM/30ML UD CUP PO SCH (09:58)
[2016-06-24] MEDS: ELIQUIS PO SCH ×2 (09:59→21:00)
[2016-06-24] MEDS: PYRIDIUM 200 MG PO SCH ×3 (10:00→21:03)
[2016-06-24] MEDS: DELTASONE 20 MG PO SCH (10:00)
[2016-06-24] MEDS: Colace 100 MG PO SCH ×3 (10:00→20:59)
[2016-06-24] MEDS: THERAGRAN MULTIVITAMIN PO SCH (10:00)
[2016-06-24] MEDS: DOLOPHINE 10MG Tablet PO SCH ×2 (10:00→21:00)
[2016-06-24] MEDS: Zofran 4 MG/2 ML VIAL IV PRN (10:01)
[2016-06-24] MEDS: Sinemet 25/250 MG PO SCH ×4 (10:01→21:05)
[2016-06-24] MEDS: Zyvox 600 MG IV PREMIX*** 300 ML IV SCH ×2 (10:02→22:43)
[2016-06-24] MEDS: Cymbalta 30 MG Capsule PO SCH (21:00)
[2016-06-24] MEDS: Flomax 0.4 MG PO SCH (21:03)
[2016-06-24] MEDS: Flonase NASAL NS SCH (21:03)
[2016-06-25] MEDS: MORPHINE SULFATE 2 MG INJ IV PRN (02:06)
[2016-06-25] MEDS: OXYCODONE-ACETAMINOPHEN 10-325 PO PRN (05:25)
[2016-06-25 05:40] LABS: Mean Cell Volume 88.6 fl (78-100); Mean Platelet Volume 8.1 fl (6-9.5); Platelet Count 256 K/mm3 (150-450); Red Cell Distribution Width 14.5 % (11.5-14.0); White Blood Count 7.8 K/mm3 (4.0-10.5)
[2016-06-25 05:42] LABS: Mean Corpuscular Hemoglobin 28.3 pg (26-32)
[2016-06-25 06:02] LABS: ANION GAP 8.8 MEQ/L (5-15); BLOOD UREA NITROGEN 9 mg/dL (9-20); CHLORIDE 102 mEq/L (98-107); Carbon Dioxide 30.1 mEq/L (21-32); Glucose 80 MG/DL (70-110); Potassium 4.3 mEq/L (3.5-5.1); SODIUM 137 mEq/L (136-145)
[2016-06-25] MEDS: ADVAIR 250-50 DISKUS 14 DOSE IH SCH (06:59)
[2016-06-25] MEDS: DUONEB 0.5-3 MG/3 ml Neb IH SCH (06:59)
[2016-06-25 07:11] VITALS: BP 94/58; PULSE 58; O2SAT 96
[2016-06-25] MEDS ORDERED: TROUGH DRUG LEVELS IJ ONE (07:30)
[2016-06-25] MEDS: GENTAMICIN 80 MG/50 ML PREMIX*** 50 ML IV SCH (07:54)
[2016-06-25] MEDS: MAALOX ES 30 ML UNIT DOSE PO PRN (07:55)
[2016-06-25 08:05] LABS: BAND 2 % (0.0-2.0); Basophil 2 % (0.0-1.0); Eosinophil 5 % (0.00-3.0); Metamyelocyte 2 %; Total Cells Counted 100
[2016-06-25 08:07] LABS: ANISOCYTOSIS 1+; Hypochromia 1+; Platelet Estimate NORMAL (NORMAL); Poikilocytosis 1+; Schistocytes RARE
--- NOTE | 2016-06-25 08:57 | PCM.DS ---
Discharge Summary Date of Admission: 06/20/16 18:29 Admitting Physician: [facility] Primary Care Provider: JULIO CESAR MONTGOMERY Allergies Allergies oxybutynin Allergy (Intermediate, Verified 06/20/16 13:58) ceftriaxone sodium [From Rocephin] Allergy (Mild, Verified 06/20/16 13:58) rash peanut Allergy (Mild, Verified 06/20/16 13:58) Rash Penicillins Allergy (Mild, Verified 06/20/16 13:58) rash primidone Allergy (Mild, Verified 06/20/16 13:58) Swelling selegiline Allergy (Mild, Verified 06/20/16 13:58) Swelling topiramate Allergy (Mild, Verified 06/20/16 13:58) Swelling levomilnacipran HCl [From Fetzima] Allergy (Verified 06/20/16 13:58) nitrofurantoin [From Macrobid] Allergy (Verified 06/20/16 13:58) nitrofurantoin macrocrystalline [From Macrobid] Allergy (Verified 06/20/16 13:58 ) nitroglycerin Allergy (Verified 06/20/16 13:58) unsure of reaction leflunomide Adverse Reaction (Intermediate, Verified 06/20/16 13:58) Sulfa (Sulfonamide Antibiotics) [Sulfa(Sulfonamide Antibiotics)] Adverse Reaction (Mild, Verified 06/20/16 13:58) frequent voiding vancomycin Adverse Reaction (Mild, Verified 06/20/16 13:58) shakes escitalopram [From Lexapro] Adverse Reaction (Verified 06/20/16 20:45) meperidine HCl [From Demerol] Adverse Reaction (Verified 06/20/16 13:58) low bp pantoprazole sodium [From Protonix] Adverse Reaction (Verified 06/20/16 13:58) Hospital Summary - Hospital Course Hospital Course: patient admitted with UTI with e coli esbl+ and MRSA, failed outpatient therapy. having severe pain and bladder spasms. family does not want him to return to [facility] at this time, they requested swing bed without being discussed with them by myself or other staff to my knowledge. he is healing from shoulder surgery and requires rehab - Vitals & Intake/Output Vital Signs: Vital Signs Temperature 98.1 F 06/25/16 07:11 Pulse Rate 58 L 06/25/16 07:11 Respiratory Rate 18 06/25/16 07:11 Blood Pressure 94/58 06/25/16 07:11 O2 Sat by Pulse Oximetry 96 06/25/16 07:11 Oxygen-Last Documented O2 Percentage 2 Liters = 28% Intake & Output: Intake & Output 06/22/16 06/23/16 06/24/16 06/25/16 11:59 11:59 11:59 11:59 Intake Total 3594 1646 1806 2876 Output Total 550 400 900 Balance 3044 1646 1406 1975 Weight 51.908 kg - Lab Result Diagrams: 06/25/16 05:33 06/25/16 05:33 Lab Results-Last 24 Hrs: Lab Results-Last 24 Hours 06/25/16 06/25/16 06/25/16 Range/Units 05:33 05:33 07:35 WBC 7.8 (4.0-10.5) K/mm3 RBC 3.70 L (4.1-5.6) M/mm3 Hgb 10.5 L (12.5-18.0) gm/dl Hct 32.8 L (42-50) % MCV 88.6 (78-100) fl MCH 28.3 (26-32) pg MCHC 32.0 (32-36) g/dl RDW 14.5 H (11.5-14.0) % Plt Count 256 (150-450) K/mm3 MPV 8.1 (6-9.5) fl Segmented Neutrophils 54 (36.-66.) % Band Neutrophils 2 (0.0-2.0) % Lymphocytes (Manual) 31 (24-44) % Monocytes (Manual) 4 (0.0-12.0) % Eosinophils (Manual) 5 H (0.00-3.0) % Basophils (Manual) 2 H (0.0-1.0) % Metamyelocytes 2 % Differential Comment ABNORMAL Platelet Estimate NORMAL (NORMAL) Hypochromasia 1+ Poikilocytosis 1+ Anisocytosis 1+ Schistocytes RARE Sodium 137 (136-145) mEq/L Potassium 4.3 (3.5-5.1) mEq/L Chloride 102 (98-107) mEq/L Carbon Dioxide 30.1 (21-32) mEq/L Anion Gap 8.8 (5-15) MEQ/L BUN 9 (9-20) mg/dL Creatinine 0.81 (0.55-1.30) mg/dl Estimated GFR > 60 ML/MIN Glucose 80 (70-110) MG/DL Calcium 8.5 (8.5-10.1) mg/dL Gentamicin Trough 1.7 ug/ML - Procedures and Test Procedures and Tests throughout Hospitalization: Therapy Orders & Screens 06/20/16 17:55 Oxygen NASAL CANNULA 2 lpm Comment: 06/20/16 19:00 neb [Respiratory Nebulizer] TID Comment: DUONEB TID Diagnosis: RECURRENT URINARY TRACT INFECTION 06/20/16 22:24 Respiratory MDI BID Comment: ADVAIR 250/50 Diagnosis: RECURRENT URINARY TRACT INFECTION and acute pain 06/20/16 23:11 OT Screen per Nursing Assess ONCE Comment: Protocol Order Physician Instructions: Greater than 3 points order OT Admission Screening Reason For Exam: Triggered on Admission Diagnosis: RECURRENT URINARY TRACT INFECTION and acute pain Open Wound/Cellutlitis/Pressure Ulcers: No Acute Fx/ORIF/Change in wt bearing status: No Severe MUSCULOSKELETAL pain: No ADL Dysfunction: Yes Acute CVA w/Hemiparesis/Hemiplegia: No Decreased Functional Mobility/Strength: Yes Sprain/Strain: No Acute Post-op Mobility Dysfunction: Yes: RIGHT SHOULDER Total Points: 7 PT Screen per Nursing Assess ONCE Comment: Protocol Order Physician Instructions: Greater than 3 points order PT Admission Screenin Reason For Exam: Triggered on Admission Diagnosis: RECURRENT URINARY TRACT INFECTION and acute pain Open Wound/Cellutlitis/Pressure Ulcers: No Acute Fx/ORIF/Change in wt bearing status: No Severe MUSCULOSKELETAL pain: No ADL Dysfunction: Yes Acute CVA w/Hemiparesis/Hemiplegia: No Decreased Functional Mobility/Strength: Yes Sprain/Strain: No Acute Post-op Mobility Dysfunction: Yes: RIGHT SHOULDER Total Points: 7 Discharge Exam General Appearance: no apparent distress, alert Neck Exam: normal inspection, non-tender, supple, full range of motion Respiratory Exam: normal breath sounds, lungs clear, No respiratory distress Cardiovascular Exam: regular rate/rhythm, normal heart sounds Gastrointestinal/Abdomen Exam: soft, No tenderness, No mass Extremity Exam: other (right arm in sling) Final Diagnosis/Problem List - Final Discharge Diagnosis/Problem (1) UTI (lower urinary tract infection) Current Visit: No Status: Acute Assessment & Plan: on gent/zyvox due to sensitivity. wbc normal, no fever. still having spasms. 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 (3) Abdominal pain Current Visit: No Status: Acute - Discharge Disposition: Swing Bed @ [facility] Condition: Stable Prescriptions: New Albuterol/Ipratropium 3ml Neb* [DUONEB 0.5-3 MG/3 ml Neb] 3 ml IH TID #0 ampul.neb Gentamicin 80 mg Premix [Gentamicin 80 mg/50 ml Premix] 1 ml IV Q12H # 0 ml Phenazopyridine HCl 200 mg [Pyridium 200 mg] 100 mg PO TID #0 tablet Ondansetron HCl 4 mg/2 ml [Zofran 4 MG/2 ML VIAL] 4 mg IV Q6H PRN PRN #0 vial PRN Reason: Nausea/Vomiting Linezolid 600 mg/300 ml [Zyvox 600 MG IV PREMIX] 300 ml IV Q12HT #0 ivpb No Action Albuterol/Ipratropium 3ml Neb* [DUONEB 0.5-3 MG/3 ml Neb] 3 ml NEBULIZE TID #0 Albuterol Sulfate [Albuterol Sulfate Hfa] 2 puffs IH QID PRN PRN #0 PRN Reason: Shortness Of Breath Prednisone 5 mg [Deltasone 5 mg] 20 mg PO DAILY #0 Tamsulosin HCl [Flomax] 0.4 mg PO QHS Apixaban [Eliquis] 2.5 mg PO BID Lactulose 15 gm PO DAILY Oxycodone HCl/Acetaminophen [Percocet 10-325 mg Tablet] 1 ea PO Q4HPRN PRN PRN Reason: Pain Triamcinolone Acetonide [Nasacort] 2 spray IH HS Methadone HCl 10 mg [DOLOPHINE 10MG Tablet] 10 mg PO BID Duloxetine HCl 30 mg [Cymbalta 30 MG Capsule] 30 mg PO HS Cephalexin Mh 500 mg [Keflex 500 mg] 500 mg PO TID Mag Hydrox/Al Hydrox/Simeth [Maalox Es 30 ml Unit Dose] 30 ml PO Q4H PRN PRN PRN Reason: Indigestion Bisacodyl 10 mg [Dulcolax 10 MG SUPP] 10 mg RC DAILY PRN PRN PRN Reason: Constipation Ondansetron HCl [Zofran] 4 mg PO Q6HPRN PRN PRN Reason: Nausea Acetaminophen 325 mg [Tylenol 325 mg] 325 mg PO Q4HPRN PRN PRN Reason: Pain Magnesium Hydroxide 30 ml [Milk of Magnesia 30 ml] 30 ml PO DAILY PRN PRN PRN Reason: Constipation Phenol/Sodium Phenolate [Chloraseptic [place] 180 ml] 1 spray PO Q4HPRN PRN PRN Reason: Pain Carbidopa/Levodopa [Sinemet 25-250 mg Tablet] 1 each PO QID Multivitamin with Minerals [Multivitamins with Minerals] 1 each PO DAILY Docusate Sodium 100 mg [Colace 100 MG] 100 mg PO TID Fluticasone/Salmeterol [Advair 250-50 Diskus] 1 each IH BID Calcium Carbonate/Mag Hydrox [Mylanta Ultra Chew Tab] 1 each PO AC Follow up with: JULIO CESAR MONTGOMERY MD [Primary Care Provider] -
[2016-06-25] MEDS: ELIQUIS PO SCH (09:10)
[2016-06-25] MEDS: DELTASONE 20 MG PO SCH (09:10)
[2016-06-25] MEDS: PYRIDIUM 200 MG PO SCH (09:11)
[2016-06-25] MEDS: THERAGRAN MULTIVITAMIN PO SCH (09:11)
[2016-06-25] MEDS: DOLOPHINE 10MG Tablet PO SCH (09:12)
[2016-06-25] MEDS: Colace 100 MG PO SCH (09:13)
[2016-06-25] MEDS: LACTULOSE 20 GM/30ML UD CUP PO SCH (09:13)
[2016-06-25] MEDS: Sinemet 25/250 MG PO SCH (09:13)
[2016-06-25] MEDS: Zofran 4 MG/2 ML VIAL IV PRN (10:48)
[2016-06-25] MEDS: Zyvox 600 MG IV PREMIX*** 300 ML IV SCH (10:48)
[2016-06-25] MEDS ORDERED: PHARMACY DOSING REQUEST MC ONE (11:19)
== END 2016-06-25 11:45 | disposition swing bed (61) | DRG 690 ==
LOC: ED 13:42 → OBSVTOIN 18:29 → MED SURG 18:29
PROVIDERS: ADMIT Internal Medicine; ATTEND Family Medicine
DX: N39.0 Urinary tract infection, site not specified (principal); B96.20 Unspecified Escherichia coli [E. coli] as the cause of diseases classified elsewhere; B95.62 Methicillin resistant Staphylococcus aureus infection as the cause of diseases classified elsewhere; M35.3 Polymyalgia rheumatica; Z79.01 Long term (current) use of anticoagulants; Z79.899 Other long term (current) drug therapy; R39.89 Other symptoms and signs involving the genitourinary system; N32.89 Other specified disorders of bladder; G20 Parkinson's disease
CPT/HCPCS: 36000; 36415; 80048; 80053; 80170; 81000; 82962; 84153; 85025; 85027; 87040; 94640; 94760; 96360; 96361; 96365; 96374; 96375; 96376; 99285; J1170; J1200; J1580; J1956; J2020; J2270; J2405; Q0162; A9270-GY; J7506

== ENCOUNTER 2016-06-25 11:45 | Inpatient (IN) | payer MEDICARE ==
[2016-06-25] MEDS ORDERED: DUONEB 0.5-3 MG/3 ml Neb IH PRN (12:36)
[2016-06-25] MEDS ORDERED: MILK OF MAGNESIA 30 ML PO PRN (12:36)
[2016-06-25] MEDS ORDERED: Dulcolax 10 MG SUPP RC PRN (12:36)
[2016-06-25] MEDS ORDERED: Sodium Chloride 0.9% 1000 ML 1,000 ML IV SCH (12:36)
[2016-06-25] MEDS ORDERED: TYLENOL 325 MG PO PRN (12:36)
[2016-06-25] MEDS: DUONEB 0.5-3 MG/3 ml Neb IH SCH ×2 (13:20→20:43)
--- NOTE | 2016-06-25 13:31 | XRAY ---
Indication: Swelling bed. Postop right shoulder. Comparison: November 27, 2015. Portable chest less inflated again with scattered calcific granulomas and right base discoid atelectasis/scarring. New left mid lung atelectasis/scarring. Remaining lungs clear. Heart is not enlarged. Vascularity normal. There has been interval right shoulder arthroplasty with stable osteopenia and left shoulder advanced degenerative changes. Impression: Status post right shoulder arthroplasty. Nonacute chest with bilateral atelectasis/scarring and evidence for old granulomatous disease.
[2016-06-25] MEDS: Sinemet 25/250 MG PO SCH ×3 (13:50→21:42)
[2016-06-25] MEDS: OXYCODONE-ACETAMINOPHEN 10-325 PO PRN ×3 (14:41→23:17)
[2016-06-25] MEDS: PYRIDIUM 200 MG PO SCH ×2 (14:42→21:41)
[2016-06-25] MEDS: GENTAMICIN 80 MG/50 ML PREMIX*** 50 ML IV SCH (17:02)
[2016-06-25] MEDS: Colace 100 MG PO SCH ×2 (17:02→21:41)
[2016-06-25] MEDS: MAALOX ES 30 ML UNIT DOSE PO PRN (17:07)
[2016-06-25] MEDS: ADVAIR 250-50 DISKUS 14 DOSE IH SCH (20:43)
[2016-06-25] MEDS: Flonase NASAL NS SCH (21:41)
[2016-06-25] MEDS: Flomax 0.4 MG PO SCH (21:41)
[2016-06-25] MEDS: ZYVOX PO SCH (21:41)
[2016-06-25] MEDS: DOLOPHINE 10MG Tablet PO SCH (21:42)
[2016-06-25] MEDS: Cymbalta 30 MG Capsule PO SCH (21:42)
[2016-06-25] MEDS: ELIQUIS PO SCH (21:42)
[2016-06-26] MEDS: OXYCODONE-ACETAMINOPHEN 10-325 PO PRN ×2 (03:45→10:33)
[2016-06-26] MEDS: ADVAIR 250-50 DISKUS 14 DOSE IH SCH ×2 (05:56→19:24)
[2016-06-26] MEDS: DUONEB 0.5-3 MG/3 ml Neb IH SCH ×3 (05:56→19:24)
[2016-06-26] MEDS: ZOFRAN ODT 4 MG PO PRN (06:03)
[2016-06-26] MEDS: GENTAMICIN 80 MG/50 ML PREMIX*** 50 ML IV SCH ×2 (06:35→17:07)
[2016-06-26] MEDS ORDERED: Aplisol ID SCH (10:00)
[2016-06-26] MEDS: Colace 100 MG PO SCH ×3 (10:32→21:33)
[2016-06-26] MEDS: PYRIDIUM 200 MG PO SCH ×3 (10:32→21:30)
[2016-06-26] MEDS: ELIQUIS PO SCH ×2 (10:32→21:32)
[2016-06-26] MEDS: LACTULOSE 20 GM/30ML UD CUP PO SCH (10:32)
[2016-06-26] MEDS: DOLOPHINE 10MG Tablet PO SCH ×2 (10:32→21:33)
[2016-06-26] MEDS: ZYVOX PO SCH ×2 (10:32→21:32)
[2016-06-26] MEDS: DELTASONE 20 MG PO SCH (10:33)
[2016-06-26] MEDS: Sinemet 25/250 MG PO SCH ×4 (10:33→21:31)
[2016-06-26] MEDS: THERAGRAN MULTIVITAMIN PO SCH (10:33)
[2016-06-26] MEDS: Zofran 4 MG/2 ML VIAL IV PRN (11:04)
[2016-06-26] MEDS: MAALOX ES 30 ML UNIT DOSE PO PRN (12:02)
[2016-06-26] MEDS: Cymbalta 30 MG Capsule PO SCH (21:31)
[2016-06-26] MEDS: Flomax 0.4 MG PO SCH (21:33)
[2016-06-26] MEDS: Flonase NASAL NS SCH (21:43)
[2016-06-27] MEDS: OXYCODONE-ACETAMINOPHEN 10-325 PO PRN ×4 (00:11→17:02)
[2016-06-27] MEDS ORDERED: GENTAMICIN 80 MG/50 ML PREMIX*** 50 ML IV ONE (05:28)
[2016-06-27] MEDS: GENTAMICIN 80 MG/50 ML PREMIX*** 50 ML IV SCH ×2 (05:45→17:03)
[2016-06-27] MEDS: DUONEB 0.5-3 MG/3 ml Neb IH SCH ×3 (07:15→23:36)
[2016-06-27] MEDS: ADVAIR 250-50 DISKUS 14 DOSE IH SCH ×2 (07:15→23:36)
[2016-06-27] MEDS: Colace 100 MG PO SCH ×3 (09:09→22:30)
[2016-06-27] MEDS: LACTULOSE 20 GM/30ML UD CUP PO SCH (09:09)
[2016-06-27] MEDS: ZYVOX PO SCH ×2 (09:24→22:27)
[2016-06-27] MEDS: Sinemet 25/250 MG PO SCH ×4 (09:25→22:27)
[2016-06-27] MEDS: ELIQUIS PO SCH ×2 (09:25→22:27)
[2016-06-27] MEDS: THERAGRAN MULTIVITAMIN PO SCH (09:27)
[2016-06-27] MEDS: DOLOPHINE 10MG Tablet PO SCH ×2 (09:28→22:27)
[2016-06-27] MEDS: DELTASONE 20 MG PO SCH (09:28)
[2016-06-27] MEDS: PYRIDIUM 200 MG PO SCH ×3 (09:28→22:27)
[2016-06-27] MEDS: Zofran 4 MG/2 ML VIAL IV PRN (09:30)
[2016-06-27] MEDS: MORPHINE SULFATE 2 MG INJ IV PRN ×2 (12:41→20:16)
[2016-06-27] MEDS: Flomax 0.4 MG PO SCH (22:27)
[2016-06-27] MEDS: Cymbalta 30 MG Capsule PO SCH (22:27)
[2016-06-27] MEDS: Flonase NASAL NS SCH (22:27)
[2016-06-28] MEDS: ZOFRAN ODT 4 MG PO PRN (06:00)
[2016-06-28] MEDS: OXYCODONE-ACETAMINOPHEN 10-325 PO PRN ×3 (06:00→21:22)
[2016-06-28] MEDS: GENTAMICIN 80 MG/50 ML PREMIX*** 50 ML IV SCH ×2 (06:00→18:13)
--- NOTE | 2016-06-28 07:30 | PCM.NOTE ---
Date and Time: 06/28/16726 Subjective Assessment: patient seems to be doing better, spasms are less painful. no new concerns. Objective Exam General Appearance: no apparent distress, alert Respiratory Exam: normal breath sounds, lungs clear, No respiratory distress Cardiovascular Exam: regular rate/rhythm, normal heart sounds Gastrointestinal/Abdomen Exam: soft, No tenderness, No mass Extremity Exam: normal inspection, normal range of motion OBJECTIVE DATA Vital Signs: Vital Signs - 24 hr Temp Pulse Resp BP Pulse Ox 06/28/16 07:10 98.4 F 67 18 111/56 95 06/27/16 19:53 98.4 F 73 14 115/56 97 06/27/16 07:32 98.3 F 67 18 114/87 96 Pain Assessment - Last Documented Pain Intensity 7 Pain Scale Used 0-10 Pain Scale Intake and Output: Intake & Output 06/25/16 06/26/16 06/27/16 06/28/16 11:59 11:59 11:59 11:59 Intake Total 2319 2315 1020 Output Total 600 200 Balance 1719 2315 820 Weight 53.524 kg Assessment/Plan (1) UTI (lower urinary tract infection) Current Visit: No Status: Acute Assessment & Plan: on zyvox/gent Code(s): N39.0 - URINARY TRACT INFECTION, SITE NOT SPECIFIED (2) Abdominal pain Current Visit: No Status: Acute Code(s): R10.9 - UNSPECIFIED ABDOMINAL PAIN (3) Parkinson's disease Current Visit: No Status: Chronic Code(s): G20 - PARKINSON'S DISEASE
[2016-06-28] MEDS: MORPHINE SULFATE 2 MG INJ IV PRN ×2 (08:20→17:36)
[2016-06-28] MEDS: LACTULOSE 20 GM/30ML UD CUP PO SCH (10:28)
[2016-06-28] MEDS: DOLOPHINE 10MG Tablet PO SCH ×2 (10:28→22:32)
[2016-06-28] MEDS: PYRIDIUM 200 MG PO SCH ×3 (10:29→22:34)
[2016-06-28] MEDS: DELTASONE 20 MG PO SCH (10:29)
[2016-06-28] MEDS: THERAGRAN MULTIVITAMIN PO SCH (10:29)
[2016-06-28] MEDS: Sinemet 25/250 MG PO SCH ×4 (10:29→22:35)
[2016-06-28] MEDS: ELIQUIS PO SCH ×2 (10:29→22:33)
[2016-06-28] MEDS: Colace 100 MG PO SCH ×3 (10:29→22:32)
[2016-06-28] MEDS: ZYVOX PO SCH ×2 (10:30→22:35)
[2016-06-28] MEDS: DUONEB 0.5-3 MG/3 ml Neb IH SCH ×3 (11:05→19:30)
[2016-06-28] MEDS: ADVAIR 250-50 DISKUS 14 DOSE IH SCH ×3 (11:06→20:06)
[2016-06-28] MEDS: MAALOX ES 30 ML UNIT DOSE PO PRN (17:02)
[2016-06-28] MEDS: Zofran 4 MG/2 ML VIAL IV PRN (17:37)
[2016-06-28] MEDS: Cymbalta 30 MG Capsule PO SCH (22:32)
[2016-06-28] MEDS: Flomax 0.4 MG PO SCH (22:33)
[2016-06-28] MEDS: Flonase NASAL NS SCH (22:33)
[2016-06-28] MEDS: Sodium Chloride 0.9% 10 ML FLUSH Syringe IV SCH (22:35)
[2016-06-29] MEDS: OXYCODONE-ACETAMINOPHEN 10-325 PO PRN ×4 (02:42→22:44)
[2016-06-29] MEDS: ZOFRAN ODT 4 MG PO PRN ×2 (05:53→17:37)
[2016-06-29] MEDS: GENTAMICIN 80 MG/50 ML PREMIX*** 50 ML IV SCH ×2 (06:22→17:33)
[2016-06-29] MEDS: Sodium Chloride 0.9% 10 ML FLUSH Syringe IV SCH ×3 (06:33→22:36)
[2016-06-29] MEDS: ADVAIR 250-50 DISKUS 14 DOSE IH SCH ×2 (06:44→19:11)
[2016-06-29] MEDS: DUONEB 0.5-3 MG/3 ml Neb IH SCH ×3 (06:44→19:12)
[2016-06-29] MEDS: Colace 100 MG PO SCH ×3 (09:26→22:34)
[2016-06-29] MEDS: DOLOPHINE 10MG Tablet PO SCH ×2 (09:26→22:34)
[2016-06-29] MEDS: DELTASONE 20 MG PO SCH (09:26)
[2016-06-29] MEDS: ELIQUIS PO SCH ×2 (09:26→22:34)
[2016-06-29] MEDS: PYRIDIUM 200 MG PO SCH ×3 (09:26→22:34)
[2016-06-29] MEDS: THERAGRAN MULTIVITAMIN PO SCH (09:26)
[2016-06-29] MEDS: Sinemet 25/250 MG PO SCH ×4 (09:27→22:34)
[2016-06-29] MEDS: ZYVOX PO SCH ×2 (09:27→22:34)
[2016-06-29] MEDS: LACTULOSE 20 GM/30ML UD CUP PO SCH ×2 (09:27→09:37)
[2016-06-29] MEDS: MAALOX ES 30 ML UNIT DOSE PO PRN ×2 (11:53→16:00)
[2016-06-29] MEDS: Cymbalta 30 MG Capsule PO SCH (22:34)
[2016-06-29] MEDS: Flomax 0.4 MG PO SCH (22:34)
[2016-06-29] MEDS: Flonase NASAL NS SCH (22:35)
[2016-06-29 23:34] VITALS: BP 125/58
[2016-06-30] MEDS: OXYCODONE-ACETAMINOPHEN 10-325 PO PRN (05:52)
[2016-06-30] MEDS: ZOFRAN ODT 4 MG PO PRN (05:52)
[2016-06-30] MEDS: GENTAMICIN 80 MG/50 ML PREMIX*** 50 ML IV SCH (06:17)
[2016-06-30] MEDS: Sodium Chloride 0.9% 10 ML FLUSH Syringe IV SCH (06:17)
[2016-06-30] MEDS: DUONEB 0.5-3 MG/3 ml Neb IH SCH (06:18)
[2016-06-30] MEDS: ADVAIR 250-50 DISKUS 14 DOSE IH SCH (06:18)
[2016-06-30 06:20] VITALS: PULSE 88; O2SAT 96
[2016-06-30 06:30] LABS: ANION GAP 8.2 MEQ/L (5-15); BLOOD UREA NITROGEN 22 mg/dL (9-20); CHLORIDE 101 mEq/L (98-107); Carbon Dioxide 30.8 mEq/L (21-32); Glucose 74 MG/DL (70-110); Potassium 4.2 mEq/L (3.5-5.1); SODIUM 136 mEq/L (136-145)
[2016-06-30 06:54] LABS: BASOPHIL % 0.3 % (0.0-0.4); Eosinophil % 5.7 % (0.00-5.0); Granulocytes % 56.8 % (36.0-66.0); Lymphocytes % 27.9 % (24.0-44.0); Mean Cell Volume 89.4 fl (78-100); Mean Platelet Volume 8.5 fl (6-9.5); Monocytes % 9.3 % (0.0-12.0); Platelet Count 186 K/mm3 (150-450); Red Cell Distribution Width 14.8 % (11.5-14.0); White Blood Count 7.2 K/mm3 (4.0-10.5)
[2016-06-30 06:56] LABS: Mean Corpuscular Hemoglobin 28.2 pg (26-32)
[2016-06-30] MEDS: MAALOX ES 30 ML UNIT DOSE PO PRN (07:59)
[2016-06-30] MEDS: ELIQUIS PO SCH (08:01)
[2016-06-30] MEDS: THERAGRAN MULTIVITAMIN PO SCH (08:01)
[2016-06-30] MEDS: Colace 100 MG PO SCH (08:01)
[2016-06-30] MEDS: LACTULOSE 20 GM/30ML UD CUP PO SCH (08:02)
[2016-06-30] MEDS: DOLOPHINE 10MG Tablet PO SCH (08:02)
[2016-06-30] MEDS: DELTASONE 20 MG PO SCH (08:02)
[2016-06-30] MEDS: PYRIDIUM 200 MG PO SCH (08:02)
[2016-06-30] MEDS: ZYVOX PO SCH (08:03)
[2016-06-30] MEDS: Sinemet 25/250 MG PO SCH (08:03)
--- NOTE | 2016-06-30 09:21 | PCM.DS ---
Discharge Summary Date of Admission: 06/25/16 11:45 Admitting Physician: JULIO CESAR MONTGOMERY Primary Care Provider: JULIO CESAR MONTGOMERY Allergies Allergies oxybutynin Allergy (Intermediate, Verified 06/20/16 13:58) ceftriaxone sodium [From Rocephin] Allergy (Mild, Verified 06/20/16 13:58) rash peanut Allergy (Mild, Verified 06/20/16 13:58) Rash Penicillins Allergy (Mild, Verified 06/20/16 13:58) rash primidone Allergy (Mild, Verified 06/20/16 13:58) Swelling selegiline Allergy (Mild, Verified 06/20/16 13:58) Swelling topiramate Allergy (Mild, Verified 06/20/16 13:58) Swelling levomilnacipran HCl [From Fetzima] Allergy (Verified 06/20/16 13:58) nitrofurantoin [From Macrobid] Allergy (Verified 06/20/16 13:58) nitrofurantoin macrocrystalline [From Macrobid] Allergy (Verified 06/20/16 13:58 ) nitroglycerin Allergy (Verified 06/20/16 13:58) unsure of reaction leflunomide Adverse Reaction (Intermediate, Verified 06/20/16 13:58) Sulfa (Sulfonamide Antibiotics) [Sulfa(Sulfonamide Antibiotics)] Adverse Reaction (Mild, Verified 06/20/16 13:58) frequent voiding vancomycin Adverse Reaction (Mild, Verified 06/20/16 13:58) shakes escitalopram [From Lexapro] Adverse Reaction (Verified 06/20/16 20:45) meperidine HCl [From Demerol] Adverse Reaction (Verified 06/20/16 13:58) low bp pantoprazole sodium [From Protonix] Adverse Reaction (Verified 06/20/16 13:58) Hospital Summary - Hospital Course Hospital Course: patient was admitted with complicated uti, based on c and s was treated with zyvox and gent. he has normal wbc and no fever on discharge. he is tolerating po , c/o bladder spasms and pain which is chronic. - Vitals & Intake/Output Vital Signs: Vital Signs Temperature 98.1 F 06/29/16 23:33 Pulse Rate 88 06/30/16 06:18 Respiratory Rate 18 06/30/16 06:18 Blood Pressure 125/58 06/29/16 23:33 O2 Sat by Pulse Oximetry 96 06/30/16 06:18 Intake & Output: Intake & Output 06/27/16 06/28/16 06/29/16 06/30/16 11:59 11:59 11:59 11:59 Intake Total 2315 0050 194 6857 Output Total 200 Balance 2315 5233 118 9850 - Lab Result Diagrams: 06/30/16 06:00 06/30/16 06:00 Lab Results-Last 24 Hrs: Lab Results-Last 24 Hours 06/30/16 06/30/16 Range/Units 06:00 06:00 WBC 7.2 (4.0-10.5) K/mm3 RBC 3.50 L (4.1-5.6) M/mm3 Hgb 9.9 L (12.5-18.0) gm/dl Hct 31.3 L (42-50) % MCV 89.4 (78-100) fl MCH 28.2 (26-32) pg MCHC 31.6 L (32-36) g/dl RDW 14.8 H (11.5-14.0) % Plt Count 186 (150-450) K/mm3 MPV 8.5 (6-9.5) fl Gran % 56.8 (36.0-66.0) % Lymphocytes % 27.9 (24.0-44.0) % Monocytes % 9.3 (0.0-12.0) % Eosinophils % 5.7 H (0.00-5.0) % Basophils % 0.3 (0.0-0.4) % Basophils # 0.02 (0-0.4) Sodium 136 (136-145) mEq/L Potassium 4.2 (3.5-5.1) mEq/L Chloride 101 (98-107) mEq/L Carbon Dioxide 30.8 (21-32) mEq/L Anion Gap 8.2 (5-15) MEQ/L BUN 22 H (9-20) mg/dL Creatinine 0.88 (0.55-1.30) mg/dl Estimated GFR > 60 ML/MIN Glucose 74 (70-110) MG/DL Calcium 8.5 (8.5-10.1) mg/dL - Procedures and Test Procedures and Tests throughout Hospitalization: Therapy Orders & Screens 06/25/16 12:11 Oxygen NASAL CANNULA 2 lpm Comment: Diagnosis: Recurrent UTI, ESBL/E.Coli requiring IV abx 06/25/16 12:12 Respiratory Nebulizer UD Comment: Albuterol TID Diagnosis: Recurrent UTI, ESBL/E.Coli requiring IV abx 06/25/16 12:13 Respiratory MDI BID Comment: Advair BID Diagnosis: Recurrent UTI, ESBL/E.Coli requiring IV abx Discharge Exam General Appearance: no apparent distress, alert Skin Exam: normal color, warm, dry Eye Exam: PERRL, EOMI, eyes nml inspection Ears, Nose, Throat Exam: normal ENT inspection, pharynx normal, moist mucous membranes Cardiovascular Exam: regular rate/rhythm, normal heart sounds Gastrointestinal/Abdomen Exam: soft, No tenderness, No mass Extremity Exam: normal inspection, normal range of motion, other (right arm in sling) Final Diagnosis/Problem List - Final Discharge Diagnosis/Problem (1) UTI (lower urinary tract infection) Current Visit: No Status: Acute (2) Abdominal pain Current Visit: No Status: Acute (3) Parkinson's disease Current Visit: No Status: Chronic - Discharge Disposition: Skilled Care @ [facility] Condition: Stable Prescriptions: New Apixaban [Eliquis] 2.5 mg PO BID #0 tablet Continue Albuterol/Ipratropium 3ml Neb* [DUONEB 0.5-3 MG/3 ml Neb] 3 ml NEBULIZE TID #0 Albuterol Sulfate [Albuterol Sulfate Hfa] 2 puffs IH QID PRN PRN #0 PRN Reason: Shortness Of Breath Prednisone 5 mg [Deltasone 5 mg] 20 mg PO DAILY #0 Tamsulosin HCl [Flomax] 0.4 mg PO QHS Apixaban [Eliquis] 2.5 mg PO BID Lactulose 15 gm PO DAILY Oxycodone HCl/Acetaminophen [Percocet 10-325 mg Tablet] 1 ea PO Q4HPRN PRN PRN Reason: Pain Triamcinolone Acetonide [Nasacort] 2 spray IH HS Methadone HCl 10 mg [DOLOPHINE 10MG Tablet] 10 mg PO BID Duloxetine HCl 30 mg [Cymbalta 30 MG Capsule] 30 mg PO HS Mag Hydrox/Al Hydrox/Simeth [Maalox Es 30 ml Unit Dose] 30 ml PO Q4H PRN PRN PRN Reason: Indigestion Bisacodyl 10 mg [Dulcolax 10 MG SUPP] 10 mg RC DAILY PRN PRN PRN Reason: Constipation Ondansetron HCl [Zofran] 4 mg PO Q6HPRN PRN PRN Reason: Nausea Acetaminophen 325 mg [Tylenol 325 mg] 325 mg PO Q4HPRN PRN PRN Reason: Pain Phenol/Sodium Phenolate [Chloraseptic [place] 180 ml] 1 spray PO Q4HPRN PRN PRN Reason: Pain Carbidopa/Levodopa [Sinemet 25-250 mg Tablet] 1 each PO QID Multivitamin with Minerals [Multivitamins with Minerals] 1 each PO DAILY Docusate Sodium 100 mg [Colace 100 MG] 100 mg PO TID Fluticasone/Salmeterol [Advair 250-50 Diskus] 1 each IH BID Calcium Carbonate/Mag Hydrox [Mylanta Ultra Chew Tab] 1 each PO AC Albuterol/Ipratropium 3ml Neb* [DUONEB 0.5-3 MG/3 ml Neb] 3 ml IH TID #0 ampul.neb Discontinued Cephalexin Mh 500 mg [Keflex 500 mg] 500 mg PO TID Magnesium Hydroxide 30 ml [Milk of Magnesia 30 ml] 30 ml PO DAILY PRN PRN PRN Reason: Constipation Follow up with: JULIO CESAR MONTGOMERY MD [Primary Care Provider] - 1 Week GUTIERREZ WEISS NP [[employer] STAFF] - 1 Week
[2016-07-06] MEDS ORDERED: Aplisol ID SCH (10:00)
== END 2016-06-30 10:50 | DRG 690 ==
LOC: MED SURG 11:45
PROVIDERS: ADMIT Family Medicine; ATTEND Family Medicine
DX: N39.0 Urinary tract infection, site not specified (principal); F33.1 Major depressive disorder, recurrent, moderate; M35.3 Polymyalgia rheumatica; G20 Parkinson's disease; Z79.01 Long term (current) use of anticoagulants; Z79.899 Other long term (current) drug therapy; G62.9 Polyneuropathy, unspecified; J44.9 Chronic obstructive pulmonary disease, unspecified; J45.909 Unspecified asthma, uncomplicated; K21.9 Gastro-esophageal reflux disease without esophagitis; M06.9 Rheumatoid arthritis, unspecified; Z85.46 Personal history of malignant neoplasm of prostate; M48.00 Spinal stenosis, site unspecified; Z85.828 Personal history of other malignant neoplasm of skin; Z90.49 Acquired absence of other specified parts of digestive tract
CPT/HCPCS: 36415; 71010; 80048; 85025; 94640; 94760; J1580; J2270; J2405; Q0162; A9270-GY; J7506

== ENCOUNTER 2016-10-04 05:45 | Emergency (ER) | payer MEDICARE ==
[2016-10-04] MEDS ORDERED: XYLOCAINE 2% Uro-Jet ONE ×2 (06:00→07:11)
[2016-10-04] MEDS ORDERED: XYLOCAINE 2% Uro-Jet TOP ONE ×2 (06:00→07:18)
[2016-10-04 06:17] VITALS: BP 181/88; PULSE 63; O2SAT 100
[2016-10-04] MEDS ORDERED: Hydromorphone 1 mg/ml Ampule IV ONE ×2 (06:29→08:08)
[2016-10-04] MEDS ORDERED: Phenergan 25 MG INJ IV ONE (06:29)
[2016-10-04] MEDS ORDERED: Sodium Chloride 0.9% 1000 ML 1,000 ML IV SCH (06:30)
[2016-10-04] MEDS ORDERED: Phenergan 25 MG INJ ONE (06:40)
[2016-10-04] MEDS ORDERED: Hydromorphone 1 mg/ml Ampule ONE ×2 (06:41→08:08)
[2016-10-04] MEDS ORDERED: Sodium Chloride 0.9% 1000 ML 1,000 ML ONE (06:41)
--- NOTE | 2016-10-04 06:58 | ERPHSYRPT ---
- History of Present Illness Source: patient Exam Limitations: no limitations Patient Subjective Stated Complaint: pt states he has been having trouble urinating and has been having increased paihn with urination and states he has only been dribbling when trying to urinate Triage Nursing Assessment: pt awake and alert, answers questions approp. pt arive per ems and transfer to stretcher with lift assist of 4. respirations nonlabored. pt restless in bed and c/o pressure in pelvic area. unable to anchor ruffin cath. attempt x2 with coude ruffin 12 fr and 16 fr. no urine assessed at this time. Hx Tetanus, Diphtheria Vaccination/Date Given: No Hx Influenza Vaccination/Date Given: No Hx Pneumococcal Vaccination/Date Given: Yes Immunizations Up to Date: No <MERRICK TAYLOR - Last Filed: 10/04/16 07:15> <ADALI NOWAK - Last Filed: 10/04/16 07:54> - History of Present Illness Time Seen by Provider: 10/04/16 06:15 Physician History: FOR THE PAST 3 DAYS PT HAS HAD DYSURIA WITH LAST VOID 3AM TODAY WHICH PRODUCED ONLY A FEW DROPS. PT HAD A 99.1 DEGREE TEMPERATURE THIS AM. LAST BM WAS 2 DAYS AGO & WNL. PT ALSO C/O AN INTERMITTENT PRURITIC RASH ON THE LATERAL ASPECT OF HIS LEFT THIGH FOR THE PAST MONTH. 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 (MERRICK TAYLOR) Allergies/Adverse Reactions: oxybutynin Allergy (Intermediate, Verified 10/04/16 06:17) ceftriaxone sodium [From Rocephin] Allergy (Mild, Verified 10/04/16 06:17) rash peanut Allergy (Mild, Verified 10/04/16 06:17) Rash Penicillins Allergy (Mild, Verified 10/04/16 06:17) rash primidone Allergy (Mild, Verified 10/04/16 06:17) Swelling selegiline Allergy (Mild, Verified 10/04/16 06:17) Swelling topiramate Allergy (Mild, Verified 10/04/16 06:17) Swelling levomilnacipran HCl [From Fetzima] Allergy (Verified 10/04/16 06:17) nitrofurantoin [From Macrobid] Allergy (Verified 10/04/16 06:17) nitrofurantoin macrocrystalline [From Macrobid] Allergy (Verified 10/04/16 06:17 ) nitroglycerin Allergy (Verified 10/04/16 06:17) unsure of reaction leflunomide Adverse Reaction (Intermediate, Verified 10/04/16 06:17) Sulfa (Sulfonamide Antibiotics) [Sulfa(Sulfonamide Antibiotics)] Adverse Reaction (Mild, Verified 10/04/16 06:17) frequent voiding vancomycin Adverse Reaction (Mild, Verified 10/04/16 06:17) shakes escitalopram [From Lexapro] Adverse Reaction (Verified 10/04/16 06:17) meperidine HCl [From Demerol] Adverse Reaction (Verified 10/04/16 06:17) low bp pantoprazole sodium [From Protonix] Adverse Reaction (Verified 10/04/16 06:17) Home Medications: Albuterol Sulfate [Albuterol Sulfate Hfa] 2 puffs IH QID PRN PRN #0 10/29/11 [ History] Albuterol/Ipratropium 3ml Neb* [DUONEB 0.5-3 MG/3 ml Neb] 3 ml NEBULIZE TID # 0 10/29/11 [History] Prednisone 5 mg [Deltasone 5 mg] 20 mg PO DAILY #0 10/29/11 [History] Apixaban [Eliquis] 2.5 mg PO BID 04/14/15 [History] Tamsulosin HCl [Flomax] 0.4 mg PO QHS 04/14/15 [History] Lactulose 15 gm PO DAILY 06/12/15 [History] Oxycodone HCl/Acetaminophen [Percocet 10-325 mg Tablet] 1 ea PO Q4HPRN PRN 11/26 [History] Triamcinolone Acetonide [Nasacort] 2 spray IH HS 11/27/15 [History] Acetaminophen 325 mg [Tylenol 325 mg] 325 mg PO Q4HPRN PRN 06/20/16 [ History] Bisacodyl 10 mg [Dulcolax 10 MG SUPP] 10 mg RC DAILY PRN PRN 06/20/16 [ History] Calcium Carbonate/Mag Hydrox [Mylanta Ultra Chew Tab] 1 each PO AC 06/20/16 [ History] Carbidopa/Levodopa [Sinemet 25-250 mg Tablet] 1 each PO QID 06/20/16 [History] Docusate Sodium 100 mg [Colace 100 MG] 100 mg PO TID 06/20/16 [History] Duloxetine HCl 30 mg [Cymbalta 30 MG Capsule] 30 mg PO HS 06/20/16 [ History] Fluticasone/Salmeterol [Advair 250-50 Diskus] 1 each IH BID 06/20/16 [History] Mag Hydrox/Al Hydrox/Simeth [Maalox Es 30 ml Unit Dose] 30 ml PO Q4H PRN PRN 06/20/16 [History] Methadone HCl 10 mg [DOLOPHINE 10MG Tablet] 10 mg PO BID 06/20/16 [History ] Multivitamin with Minerals [Multivitamins with Minerals] 1 each PO DAILY [History] Ondansetron HCl [Zofran] 4 mg PO Q6HPRN PRN 06/20/16 [History] Phenol/Sodium Phenolate [Chloraseptic [place] 180 ml] 1 spray PO Q4HPRN PRN 06/20/16 [History] - Review of Systems Genitourinary Symptoms: Dysuria, Urinary Retention Skin: Rash All Other Systems: Reviewed and Negative <MERRICK TAYLOR - Last Filed: 10/04/16 07:15> - Past Medical History Pertinent Past Medical History: Yes Neurological History: Peripheral Neuropathy, Other ENT History: Cataracts Cardiac History: Arrhythmia Respiratory History: Asthma, COPD Endocrine Medical History: No Pertinent History Musculoskeletal History: Osteoarthritis, Rheumatoid Arthritis, Other GI Medical History: Diverticulitis, GERD, Hemorrhoids, Hernia History: Other Psycho-Social History: Depression Male Reproductive Disorders: Prostate Cancer Other Medical History: PARKINSON'S, NEUROPATHY, SPINAL STENOSIS, PROSTATE CANCER , SKIN CANCER, torn rotator cuff in right shoulder - Past Surgical History Past Surgical History: Yes (colon obstruction 2014,) Neuro Surgical History: No Pertinent History Cardiac: Cardiac Catheterization Respiratory: No Pertinent History Gastrointestinal: Appendectomy, Bowel Surgery, Hernia Repair Genitourinary: No Pertinent History Musculoskeletal: Orthopedic Surgery Male Surgical History: Prostate Surgery Other Surgical History: TONSILS. BOWEL RESECTION. EGD. COLONSCOPIES. bilateral SHOULDER SURGERY. CATARACT SURGERIES - Social History Smoking Status: Former smoker Exposure to second hand smoke: No Alcohol Use: None Drug Use: none Patient Lives Alone: No Significant Family History: no pertinent family hx <MERRICK TAYLOR ANNAJOVANA - Last Filed: 10/04/16 07:15> - Physical Exam General Appearance: mild distress, alert Eye Exam: PERRL/EOMI Ears, Nose, Throat Exam: pharynx normal, moist mucous membranes Neck Exam: normal inspection Respiratory Exam: lungs clear Cardiovascular Exam: No friction rub Gastrointestinal/Abdomen Exam: normal bowel sounds, tenderness (MILD LOWER MID ABDOMINAL TENDERNESS) Male Genitalia Exam: No testicular tenderness, No penile discharge Back Exam: normal inspection Extremity Exam: No pedal edema Neurologic Exam: alert, cooperative Skin Exam: warm, dry SpO2 Interpretation: normal SpO2: 100 Oxygen Delivery: Room Air <MERRICK TAYLOR CAROL - Last Filed: 10/04/16 07:15> <ADALI NOWAK - Last Filed: 10/04/16 07:54> - Nursing Vital Signs Nursing Vital Signs: Initial Vital Signs Temperature 98.3 F 10/04/16 05:53 Pulse Rate 63 10/04/16 05:53 Respiratory Rate 18 10/04/16 05:53 Blood Pressure 181/88 10/04/16 05:53 O2 Sat by Pulse Oximetry 100 10/04/16 05:53 Pain Scale Pain Intensity 7 - Course Nursing assessment & vital signs reviewed: Yes <MERRICK TAYLOR CAROL - Last Filed: 10/04/16 07:15> Ordered Tests: Active Orders 24 hr Category Date Time Status Cath [Catheter-[place] Ruffin] STAT Care 10/04/16 07:38 Active IV Insertion STAT Care 10/04/16 06:29 Active ABDOMEN AND PELVIS W/0 CONTRAS [CT] Stat Exams 10/04/16 06:30 Ordered AMYLASE Stat Lab 10/04/16 06:45 Completed BLOOD CULTURE Stat Lab 10/04/16 06:35 Received CBC W DIFF Stat Lab 10/04/16 06:45 Completed CMP Stat Lab 10/04/16 06:45 Completed LIPASE Stat Lab 10/04/16 06:45 Completed Manual Differential NC Stat Lab 10/04/16 06:45 Completed UA W/RFX UR CULTURE Stat Lab 10/04/16 06:29 Ordered Medication Summary Generic Name Dose Route Start Last Admin Trade Name Freq PRN Reason Stop Dose Admin Sodium Chloride 1,000 mls @ 100 mls/hr 10/04/16 06:30 10/04/16 06:47 Sodium Chloride 0.9% 1000 Ml IV 11/03/16 06:29 100 mls/hr .Q10H DAVY Administration Discontinued Medications Generic Name Dose Route Start Last Admin Trade Name Stephanie PRN Reason Stop Dose Admin Hydromorphone HCl 0.5 mg 10/04/16 06:29 10/04/16 06:47 Hydromorphone 1 Mg/Ml Ampule IV 10/04/16 06:30 0.5 mg STAT ONE Administration Hydromorphone HCl Confirm 10/04/16 06:41 Hydromorphone 1 Mg/Ml Ampule Administered 10/04/16 06:42 Dose 1 mg .ROUTE .STK-MED ONE Lidocaine HCl Confirm 10/04/16 06:00 Xylocaine 2% Uro-Jet Administered 10/04/16 06:01 Dose 200 mg .ROUTE .STK-MED ONE Lidocaine HCl Confirm 10/04/16 07:11 Xylocaine 2% Uro-Jet Administered 10/04/16 07:12 Dose 200 mg .ROUTE .STK-MED ONE Lidocaine HCl 400 mg 10/04/16 07:18 10/04/16 07:10 Xylocaine 2% Uro-Jet TOP 10/04/16 07:19 400 mg STAT ONE Administration Promethazine HCl 12.5 mg 10/04/16 06:29 10/04/16 06:47 Phenergan 25 Mg Inj IV 10/04/16 06:30 12.5 mg STAT ONE Administration Promethazine HCl Confirm 10/04/16 06:40 Phenergan 25 Mg Inj Administered 10/04/16 06:41 Dose 25 mg .ROUTE .STK-MED ONE Lab/Rad Data: Laboratory Result Diagrams 10/04/16 06:45 10/04/16 06:45 Laboratory Results 10/04/16 10/04/16 Range/Units 06:45 06:45 WBC 8.7 (4.0-10.5) K/mm3 RBC 4.66 (4.1-5.6) M/mm3 Hgb 13.1 (12.5-18.0) gm/dl Hct 39.9 L (42-50) % MCV 85.6 (78-100) fl MCH 28.1 (26-32) pg MCHC 32.8 (32-36) g/dl RDW 16.4 H (11.5-14.0) % Plt Count 212 (150-450) K/mm3 MPV 8.7 (6-9.5) fl Sodium 138 (136-145) mEq/L Potassium 3.9 (3.5-5.1) mEq/L Chloride 102 (98-107) mEq/L Carbon Dioxide 27.9 (21-32) mEq/L Anion Gap 11.9 (5-15) MEQ/L BUN 18 (9-20) mg/dL Creatinine 1.03 (0.55-1.30) mg/dl Estimated GFR > 60 ML/MIN Glucose 73 (70-110) MG/DL Calcium 9.0 (8.5-10.1) mg/dL Total Bilirubin 0.50 (0.2-1.0) mg/dL AST 36 (15-37) U/L ALT 42 (12-78) U/L Alkaline Phosphatase 127 H (46-116) U/L Serum Total Protein 6.5 (6.4-8.2) gm/dL Albumin 3.1 L (3.4-5.0) g/dL Amylase 53 (25-115) U/L Lipase 118 (73-393) U/L <MERRICK TAYLOR - Last Filed: 10/04/16 07:15> - Progress Progress: unchanged Discussed with Dr.: Other (Dr. Li at [facility] in [place].) Counseled pt/family regarding: lab results, diagnosis, need for follow-up, rad results <ADALI NOWAK - Last Filed: 10/04/16 07:54> - Progress Progress Note: 10/04/16 07:50 Unable to insert Ruffin or Coude catheters per numerous attempts. No Urology available here. Dr. Li notified at [facility] and pt. will be transferred immediately for further intervention to relieve his urinary retention and likely obstruction. He will probably need suprapubic catheter. (ADALI NOWAK) <MERRICK TAYLOR - Last Filed: 10/04/16 07:15> - Departure Time of Disposition: 07:40 Departure Disposition: Transfer Critical Care Time: No <ADALI NOWAK - Last Filed: 10/04/16 07:54> - Departure Clinical Impression: Acute urinary retention, Prostate cancer Condition: Stable Referrals: JULIO CESAR MONTGOMERY MD [ACTIVE STAFF] -
[2016-10-04 06:59] LABS: Mean Cell Volume 85.6 fl (78-100); Mean Corpuscular Hemoglobin 28.1 pg (26-32); Mean Platelet Volume 8.7 fl (6-9.5); Platelet Count 212 K/mm3 (150-450); Red Blood Count 4.66 M/mm3 (4.1-5.6); Red Cell Distribution Width 16.4 % (11.5-14.0); White Blood Count 8.7 K/mm3 (4.0-10.5)
[2016-10-04 07:21] LABS: ALBUMIN 3.1 g/dL (3.4-5.0); ALKALINE PHOSPHATASE 127 U/L (46-116); ANION GAP 11.9 MEQ/L (5-15); BLOOD UREA NITROGEN 18 mg/dL (9-20); CHLORIDE 102 mEq/L (98-107); Carbon Dioxide 27.9 mEq/L (21-32); Glucose 73 MG/DL (70-110); LIPASE 118 U/L (73-393); Potassium 3.9 mEq/L (3.5-5.1); SGOT/AST 36 U/L (15-37); SGPT/ALT 42 U/L (12-78); SODIUM 138 mEq/L (136-145); Total Protein 6.5 gm/dL (6.4-8.2)
[2016-10-04 08:21] LABS: BAND 2 % (0.0-2.0); Basophil 1 % (0.0-1.0); Eosinophil 1 % (0.00-3.0); Platelet Estimate NORMAL (NORMAL); Total Cells Counted 100
--- NOTE | 2016-10-04 08:33 | XRAY ---
Indication: Pelvic pain. Difficulty urinating. History of prostate cancer. Multiple contiguous axial images obtained through the abdomen and pelvis without contrast as ordered. Comparison: June 18, 2016. Lung bases again hyperinflated with fibrosis/scarring. No infiltrate or effusion. Heart is not enlarged. Again previous right hemicolectomy with worsening significant diffuse fecal stasis including rectal impaction. Small bowel loops are again fluid distended with predominantly synchronous fluid leveling favoring ileus. No free fluid/air. Stable nonobstructing left renal punctate calculus, bilateral renal cysts, tiny fatty right inguinal hernia, scattered calcified splenic granulomas, and prostate radiation seeds. Remaining liver, gallbladder, pancreas, spleen, adrenal glands, kidneys, ureters, and bladder appear unremarkable for noncontrast exam. Stable heavy aortoiliac calcifications without AAA. Osseous structures again demonstrates moderate/advanced multilevel spinal degenerative spondylosis, L5 spondylolysis with grade 1 spondylolisthesis, levorotoscoliosis, and degenerative changes of both hips. Impression: 1. Worsening fecal stasis with now rectal impaction. Again fluid distended small bowel loops with synchronous fluid leveling favoring ileus. 2. Stable nonobstructing left renal micro-calculus, bilateral renal cysts, tiny fatty right inguinal hernia, and evidence for old granulomatous disease. 5. Stable multilevel spinal degenerative spondylosis, scoliosis, L5 spondylolysis with grade 1 spondylolisthesis, and degenerative changes of both hips. CTDI 12.61
== END 2016-10-04 08:15 | disposition short-term general hospital (02) ==
LOC: ED 05:45
DX: R33.9 Retention of urine, unspecified (principal); C61 Malignant neoplasm of prostate; Z79.899 Other long term (current) drug therapy
CPT/HCPCS: 36000; 36415; 51702; 74176; 80053; 82150; 83690; 85025; 87040; 96360; 96361; 96374; 96375; 99285; J1170; J2550

== ENCOUNTER 2017-01-29 18:50 | Emergency (ER) | payer MEDICARE ==
[2017-01-29] MEDS ORDERED: Merrem 1 GM 1 G in Sodium Chloride 100ML MINI-BAG PLUS 100 ML IV STA (19:03)
--- NOTE | 2017-01-29 19:13 | ERPHSYRPT ---
- History of Present Illness Time Seen by Provider: 01/29/17 19:09 Source: family, EMS Exam Limitations: clinical condition Physician History: 89-year-old male with significant past medical history of prostatic enlargement and obstructive uropathy, vascular dementia recently was admitted at [facility] with urinary tract infection and had indwelling catheter. He started having some fever, chills, and foul-smelling urine in the catheter bag. So, the family got concerned and brought a should into the emergency room by ambulance. He also found patient to be more confuse. Timing/Duration: yesterday Onset Location: unknown Modifying Factors: Improves With: nothing Associated Symptoms: loss of bladder control Allergies/Adverse Reactions: oxybutynin Allergy (Intermediate, Verified 01/29/17 19:39) ceftriaxone sodium [From Rocephin] Allergy (Mild, Verified 01/29/17 19:39) rash peanut Allergy (Mild, Verified 01/29/17 19:39) Rash Penicillins Allergy (Mild, Verified 01/29/17 19:39) rash primidone Allergy (Mild, Verified 01/29/17 19:39) Swelling selegiline Allergy (Mild, Verified 01/29/17 19:39) Swelling topiramate Allergy (Mild, Verified 01/29/17 19:39) Swelling famotidine Allergy (Verified 01/29/17 19:39) gabapentin Allergy (Verified 01/29/17 19:39) levomilnacipran HCl [From Fetzima] Allergy (Verified 01/29/17 19:39) nitrofurantoin [From Macrobid] Allergy (Verified 01/29/17 19:39) nitrofurantoin macrocrystalline [From Macrobid] Allergy (Verified 01/29/17 19:39 ) nitroglycerin Allergy (Verified 01/29/17 19:39) unsure of reaction leflunomide Adverse Reaction (Intermediate, Verified 01/29/17 19:39) Sulfa (Sulfonamide Antibiotics) [Sulfa(Sulfonamide Antibiotics)] Adverse Reaction (Mild, Verified 01/29/17 19:39) frequent voiding vancomycin Adverse Reaction (Mild, Verified 01/29/17 19:39) shakes escitalopram [From Lexapro] Adverse Reaction (Verified 01/29/17 19:39) meperidine HCl [From Demerol] Adverse Reaction (Verified 01/29/17 19:39) low bp pantoprazole sodium [From Protonix] Adverse Reaction (Verified 01/29/17 19:39) Home Medications: Albuterol Sulfate [Albuterol Sulfate Hfa] 2 puffs IH QID PRN PRN #0 10/29/11 [ History] Albuterol/Ipratropium 3ml Neb* [DUONEB 0.5-3 MG/3 ml Neb] 3 ml NEBULIZE QID # 0 10/29/11 [History] Prednisone 5 mg [Deltasone 5 mg] 20 mg PO DAILY #0 10/29/11 [History] Tamsulosin HCl [Flomax] 0.4 mg PO QHS 04/14/15 [History] Lactulose 15 gm PO DAILY 06/12/15 [History] Oxycodone HCl/Acetaminophen [Percocet 10-325 mg Tablet] 1 ea PO Q4HPRN PRN 11/26 [History] Triamcinolone Acetonide [Nasacort] 2 spray IH HS 11/27/15 [History] Bisacodyl 10 mg [Dulcolax 10 MG SUPP] 10 mg RC DAILY PRN PRN 06/20/16 [ History] Calcium Carbonate/Mag Hydrox [Mylanta Ultra Chew Tab] 1 each PO AC 06/20/16 [ History] Carbidopa/Levodopa [Sinemet 25-250 mg Tablet] 1 each PO QID 06/20/16 [History] Docusate Sodium 100 mg [Colace 100 MG] 100 mg PO BID 06/20/16 [History] Duloxetine HCl 30 mg [Cymbalta 30 MG Capsule] 30 mg PO HS 06/20/16 [ History] Mag Hydrox/Al Hydrox/Simeth [Maalox Es 30 ml Unit Dose] 30 ml PO TID 06/20 [History] Methadone HCl 10 mg [DOLOPHINE 10MG Tablet] 5 mg PO TID 06/20/16 [History] Multivitamin with Minerals [Multivitamins with Minerals] 1 each PO DAILY [History] Ondansetron HCl [Zofran] 4 mg PO Q6HPRN PRN 06/20/16 [History] Fluticasone/Salmeterol [Advair 250-50 Diskus] 1 puff IH BID 01/29/17 [History] Hx Tetanus, Diphtheria Vaccination/Date Given: No Hx Influenza Vaccination/Date Given: No Hx Pneumococcal Vaccination/Date Given: Yes - Past Medical History Pertinent Past Medical History: Yes Neurological History: Peripheral Neuropathy, Other ENT History: Cataracts Cardiac History: Arrhythmia Respiratory History: Asthma, COPD Endocrine Medical History: No Pertinent History Musculoskeletal History: Osteoarthritis, Rheumatoid Arthritis, Other GI Medical History: Diverticulitis, GERD, Hemorrhoids, Hernia History: Other Psycho-Social History: Depression Male Reproductive Disorders: Prostate Cancer Other Medical History: PARKINSON'S, NEUROPATHY, SPINAL STENOSIS, PROSTATE CANCER , SKIN CANCER, torn rotator cuff in right shoulder - Past Surgical History Past Surgical History: Yes (colon obstruction 2014,) Neuro Surgical History: No Pertinent History Cardiac: Cardiac Catheterization Respiratory: No Pertinent History Gastrointestinal: Appendectomy, Bowel Surgery, Hernia Repair Genitourinary: No Pertinent History Musculoskeletal: Orthopedic Surgery Male Surgical History: Prostate Surgery Other Surgical History: TONSILS. BOWEL RESECTION. EGD. COLONSCOPIES. bilateral SHOULDER SURGERY. CATARACT SURGERIES - Social History Smoking Status: Former smoker Exposure to second hand smoke: No Alcohol Use: None Drug Use: none Patient Lives Alone: No Significant Family History: no pertinent family hx - Review of Systems Constitutional: Fever, Lethargy, Weakness Eyes: No Symptoms Ears, Nose, & Throat: No Symptoms Respiratory: No Symptoms Cardiac: No Symptoms Abdominal/Gastrointestinal: No Symptoms Genitourinary Symptoms: Incontinence, Urinary Retention Musculoskeletal: No Symptoms Skin: No Symptoms Neurological: No Symptoms - Nursing Vital Signs Nursing Vital Signs: Initial Vital Signs Temperature 97.9 F 01/29/17 18:52 Pulse Rate 76 01/29/17 18:52 Respiratory Rate 18 01/29/17 18:52 Blood Pressure 107/59 01/29/17 18:52 O2 Sat by Pulse Oximetry 95 01/29/17 18:52 Pain Scale Pain Intensity 7 - Physical Exam General Appearance: mild distress Eye Exam: PERRL/EOMI Ears, Nose, Throat Exam: normal ENT inspection, dry mucous membranes Neck Exam: normal inspection Respiratory Exam: diminished breath sounds Cardiovascular Exam: regular rate/rhythm Gastrointestinal/Abdomen Exam: soft Male Genital Exam: normal genitalia - Course Nursing assessment & vital signs reviewed: Yes Ordered Tests: Active Orders 24 hr Category Date Time Status Oxygen-ED Only NASAL CANNULA 2 lpm Care 01/29/17 19:03 Active BLOOD CULTURE Stat Lab 01/29/17 19:10 Received CBC W DIFF Stat Lab 01/29/17 18:55 Completed CMP Stat Lab 01/29/17 18:55 Completed CULTURE,URINE Stat Lab 01/29/17 18:55 Received Lactic Acid Stat Lab 01/29/17 19:04 Ordered Manual Differential NC Stat Lab 01/29/17 18:55 Completed UA Stat Lab 01/29/17 18:55 Received Medication Summary Generic Name Dose Route Start Last Admin Trade Name Freq PRN Reason Stop Dose Admin Sodium Chloride 1,000 mls @ 999 mls/hr 01/29/17 19:15 01/29/17 19:24 Sodium Chloride 0.9% 1000 Ml IV 01/29/17 21:15 999 mls/hr .Q1H1M DAVY Administration Discontinued Medications Generic Name Dose Route Start Last Admin Trade Name Freq PRN Reason Stop Dose Admin Meropenem 1 g/ Sodium Chloride 100 mls @ 200 mls/hr 01/29/17 19:03 01/29/17 19:22 IV 01/29/17 19:32 200 mls/hr STAT STA Administration Sodium Chloride Confirm 01/29/17 19:15 Sodium Chloride 0.9% 100 Ml Ivpb Administered 01/29/17 19:16 Dose 100 mls @ ud IV .STK-MED ONE Meropenem Confirm 01/29/17 19:15 Merrem 1 Gm Administered 01/29/17 19:16 Dose 1 g IV .STK-MED ONE Lab/Rad Data: Laboratory Result Diagrams 01/29/17 18:55 01/29/17 18:55 Laboratory Results 01/29/17 01/29/17 Range/Units 18:55 18:55 WBC 10.9 H (4.0-10.5) K/mm3 RBC 5.02 (4.1-5.6) M/mm3 Hgb 13.0 (12.5-18.0) gm/dl Hct 41.2 L (42-50) % MCV 82.1 (78-100) fl MCH 25.9 L (26-32) pg MCHC 31.6 L (32-36) g/dl RDW 15.7 H (11.5-14.0) % Plt Count 315 (150-450) K/mm3 MPV 8.7 (6-9.5) fl Sodium 134 L (136-145) mEq/L Potassium 4.1 (3.5-5.1) mEq/L Chloride 100 (98-107) mEq/L Carbon Dioxide 28.2 (21-32) mEq/L Anion Gap 9.9 (5-15) MEQ/L BUN 19 (9-20) mg/dL Creatinine 1.13 (0.55-1.30) mg/dl Estimated GFR > 60 ML/MIN Glucose 92 (70-110) MG/DL Calcium 8.7 (8.5-10.1) mg/dL Total Bilirubin 0.60 (0.2-1.0) mg/dL AST 19 (15-37) U/L ALT 11 L (12-78) U/L Alkaline Phosphatase 70 (46-116) U/L Serum Total Protein 6.2 L (6.4-8.2) gm/dL Albumin 2.4 L (3.4-5.0) g/dL - Progress Progress: improved Counseled pt/family regarding: lab results, diagnosis, need for follow-up - Departure Time of Disposition: 19:56 Departure Disposition: Home Clinical Impression: UTI (urinary tract infection) Qualifiers: Urinary tract infection type: catheter-associated UTI Indwelling urinary catheter type: indwelling urethral catheter Encounter type: subsequent encounter Qualified Code(s): T83.511D - Infection and inflammatory reaction due to indwelling urethral catheter, subsequent encounter; N39.0 - Urinary tract infection, site not specified; N39.0 - Urinary tract infection, site not specified Condition: Stable Critical Care Time: No Referrals: ZOHREH BARROS [Primary Care Provider] - Instructions: Urinary Tract Infection (UTI) Additional Instructions: URINARY TRACT INFECTION 1. You will need to drink plenty of fluids in order to keep your urinary system flushed. These fluids should mainly consist of water and juices. 2. Take medications as directed. You need to completely finish any antiobiotic prescription given. 3. Try to avoid coffee, tea, alcohol, and seasoned foods as they may cause bladder irritation. 4. If signs and symptoms persist after 3-4 days, you will need to follow up with your family physician. 5. Female Patients: A. Avoid intercourse for 3-4 days. B. Empty bladder before and after intercourse to reduce risk of re- infection. C. After emptying bladder, wipe from front to back to reduce the risk of re- infection. Prescriptions: Ciprofloxacin [Cipro 500 MG] 500 mg PO BID #15 tablet
[2017-01-29] MEDS ORDERED: Sodium Chloride 0.9% 1000 ML 1,000 ML IV SCH (19:15)
[2017-01-29] MEDS ORDERED: Sodium Chloride 0.9% 1000 ML 1,000 ML ONE (19:15)
[2017-01-29] MEDS ORDERED: Merrem 1 GM IV ONE (19:15)
[2017-01-29] MEDS ORDERED: Sodium Chloride 0.9% 100 ML IVPB 100 ML IV ONE (19:15)
[2017-01-29 19:22] LABS: Mean Cell Volume 82.1 fl (78-100); Mean Corpuscular Hemoglobin 25.9 pg (26-32); Mean Platelet Volume 8.7 fl (6-9.5); Platelet Count 315 K/mm3 (150-450); Red Blood Count 5.02 M/mm3 (4.1-5.6); Red Cell Distribution Width 15.7 % (11.5-14.0); White Blood Count 10.9 K/mm3 (4.0-10.5)
[2017-01-29 19:42] LABS: ALBUMIN 2.4 g/dL (3.4-5.0); ALKALINE PHOSPHATASE 70 U/L (46-116); ANION GAP 9.9 MEQ/L (5-15); BLOOD UREA NITROGEN 19 mg/dL (9-20); CHLORIDE 100 mEq/L (98-107); Carbon Dioxide 28.2 mEq/L (21-32); Glucose 92 MG/DL (70-110); Potassium 4.1 mEq/L (3.5-5.1); SGOT/AST 19 U/L (15-37); SGPT/ALT 11 U/L (12-78); SODIUM 134 mEq/L (136-145); Total Protein 6.2 gm/dL (6.4-8.2)
[2017-01-29 19:59] LABS: Collection Type CATH
[2017-01-29 20:00] LABS: Bilirubin NEGATIVE (NEGATIVE); Blood 250 Ery/ul (0-5); COMPLETE URINE MICROSCOPIC? YES; Glucose NEGATIVE (NEGATIVE); Leukocyte Esterase 2+ (NEGATIVE)
[2017-01-29 20:01] LABS: Bacteria MODERATE /HPF (NEGATIVE); WBC 50-100 /HPF (0-5); Yeast MODERATE /HPF (NEGATIVE)
[2017-01-29] MEDS ORDERED: TYLENOL 325 MG PO STA (20:35)
[2017-01-29] MEDS ORDERED: TYLENOL 325 MG ONE (20:35)
[2017-01-29 21:22] VITALS: BP 145/90; PULSE 72; O2SAT 99
[2017-01-29 23:12] LABS: Eosinophil 4 % (0.00-3.0); Platelet Estimate NORMAL (NORMAL); Total Cells Counted 100
== END 2017-01-29 21:05 | disposition home or self-care (01) ==
LOC: ED 18:50
DX: N39.0 Urinary tract infection, site not specified (principal); T83.511D Infection and inflammatory reaction due to indwelling urethral catheter, subsequent encounter; R41.0 Disorientation, unspecified; Z79.899 Other long term (current) drug therapy; Z79.891 Long term (current) use of opiate analgesic
CPT/HCPCS: 36415; 80053; 81000; 85025; 87040; 87077; 87086; 87186; 96360; 96365; 99284; A9270-GY

== ENCOUNTER 2017-02-07 02:10 | Observation (INO) | payer MEDICARE ==
[2017-02-07 02:20] VITALS: O2SAT 96
[2017-02-07] MEDS ORDERED: Zofran 4 MG/2 ML VIAL IV STA (02:21)
[2017-02-07] MEDS ORDERED: Sodium Chloride 0.9% 1000 ML 1,000 ML IV STA (02:21)
[2017-02-07] MEDS ORDERED: Zofran 4 MG/2 ML VIAL ONE (02:30)
[2017-02-07] MEDS ORDERED: Sodium Chloride 0.9% 1000 ML 1,000 ML ONE (02:30)
--- NOTE | 2017-02-07 02:33 | ERPHSYRPT ---
- History of Present Illness Time Seen by Provider: 02/07/17 02:28 Historian: EMS Exam Limitations: no limitations Patient Subjective Stated Complaint: Abdominal Pain Triage Nursing Assessment: Abdominal pain beginning at 1400 yeesterday, improvement with percocet, but then worsening a few hours later. Pt states emesis x1 episode. Pt denies other complaints. Pt in bed, bed in low position, call light in reach. Physician History: Abdominal pain beginning at 1400 yeesterday, improvement with percocet, but then worsening a few hours later. Pt states emesis x1 episode. Pt denies other complaints Timing/Duration: today Activities at Onset: none Quality: cramping Abdominal Pain Onset Location: generalized abdomen Pain Radiation: no radiation Severity of Pain-Max: moderate Severity of Pain-Current: moderate Modifying Factors: Improves With: nothing Associated Symptoms: nausea Allergies/Adverse Reactions: oxybutynin Allergy (Intermediate, Verified 01/29/17 19:39) ceftriaxone sodium [From Rocephin] Allergy (Mild, Verified 01/29/17 19:39) rash peanut Allergy (Mild, Verified 01/29/17 19:39) Rash Penicillins Allergy (Mild, Verified 01/29/17 19:39) rash primidone Allergy (Mild, Verified 01/29/17 19:39) Swelling selegiline Allergy (Mild, Verified 01/29/17 19:39) Swelling topiramate Allergy (Mild, Verified 01/29/17 19:39) Swelling famotidine Allergy (Verified 01/29/17 19:39) gabapentin Allergy (Verified 01/29/17 19:39) levomilnacipran HCl [From Fetzima] Allergy (Verified 01/29/17 19:39) nitrofurantoin [From Macrobid] Allergy (Verified 01/29/17 19:39) nitrofurantoin macrocrystalline [From Macrobid] Allergy (Verified 01/29/17 19:39 ) nitroglycerin Allergy (Verified 01/29/17 19:39) unsure of reaction leflunomide Adverse Reaction (Intermediate, Verified 01/29/17 19:39) Sulfa (Sulfonamide Antibiotics) [Sulfa(Sulfonamide Antibiotics)] Adverse Reaction (Mild, Verified 01/29/17 19:39) frequent voiding vancomycin Adverse Reaction (Mild, Verified 01/29/17 19:39) shakes escitalopram [From Lexapro] Adverse Reaction (Verified 01/29/17 19:39) meperidine HCl [From Demerol] Adverse Reaction (Verified 01/29/17 19:39) low bp pantoprazole sodium [From Protonix] Adverse Reaction (Verified 01/29/17 19:39) Home Medications: Albuterol Sulfate [Albuterol Sulfate Hfa] 2 puffs IH QID PRN PRN #0 10/29/11 [ History] Albuterol/Ipratropium 3ml Neb* [DUONEB 0.5-3 MG/3 ml Neb] 3 ml NEBULIZE QID # 0 10/29/11 [History] Prednisone 5 mg [Deltasone 5 mg] 20 mg PO DAILY #0 10/29/11 [History] Tamsulosin HCl [Flomax] 0.4 mg PO QHS 04/14/15 [History] Lactulose 15 gm PO DAILY 06/12/15 [History] Oxycodone HCl/Acetaminophen [Percocet 10-325 mg Tablet] 1 ea PO Q4HPRN PRN 11/26 [History] Triamcinolone Acetonide [Nasacort] 2 spray IH HS 11/27/15 [History] Bisacodyl 10 mg [Dulcolax 10 MG SUPP] 10 mg RC DAILY PRN PRN 06/20/16 [ History] Calcium Carbonate/Mag Hydrox [Mylanta Ultra Chew Tab] 1 each PO AC 06/20/16 [ History] Carbidopa/Levodopa [Sinemet 25-250 mg Tablet] 1 each PO QID 06/20/16 [History] Docusate Sodium 100 mg [Colace 100 MG] 100 mg PO BID 06/20/16 [History] Duloxetine HCl 30 mg [Cymbalta 30 MG Capsule] 30 mg PO HS 06/20/16 [ History] Mag Hydrox/Al Hydrox/Simeth [Maalox Es 30 ml Unit Dose] 30 ml PO TID 06/20 [History] Methadone HCl 10 mg [DOLOPHINE 10MG Tablet] 5 mg PO TID 06/20/16 [History] Multivitamin with Minerals [Multivitamins with Minerals] 1 each PO DAILY [History] Ondansetron HCl [Zofran] 4 mg PO Q6HPRN PRN 06/20/16 [History] Fluticasone/Salmeterol [Advair 250-50 Diskus] 1 puff IH BID 01/29/17 [History] Hx Tetanus, Diphtheria Vaccination/Date Given: Yes Hx Influenza Vaccination/Date Given: Yes Hx Pneumococcal Vaccination/Date Given: Yes Immunizations Up to Date: Yes - Review of Systems Constitutional: No Fever, No Chills Eyes: No Symptoms Ears, Nose, & Throat: No Symptoms Respiratory: No Cough, No Dyspnea Cardiac: No Chest Pain, No Edema, No Syncope Abdominal/Gastrointestinal: Abdominal Pain, Nausea, No Vomiting, No Diarrhea Genitourinary Symptoms: No Dysuria Musculoskeletal: No Back Pain, No Neck Pain Skin: No Rash Neurological: No Dizziness, No Focal Weakness, No Sensory Changes Psychological: No Symptoms Endocrine: No Symptoms All Other Systems: Reviewed and Negative - Past Medical History Pertinent Past Medical History: Yes Neurological History: Peripheral Neuropathy, Other ENT History: Cataracts Cardiac History: Arrhythmia Respiratory History: Asthma, COPD Endocrine Medical History: No Pertinent History Musculoskeletal History: Osteoarthritis, Rheumatoid Arthritis, Other GI Medical History: Diverticulitis, GERD, Hemorrhoids, Hernia History: Other Psycho-Social History: Depression Male Reproductive Disorders: Prostate Cancer Other Medical History: PARKINSON'S, NEUROPATHY, SPINAL STENOSIS, PROSTATE CANCER , SKIN CANCER, torn rotator cuff in right shoulder - Past Surgical History Past Surgical History: Yes (colon obstruction 2014,) Neuro Surgical History: No Pertinent History Cardiac: Cardiac Catheterization Respiratory: No Pertinent History Gastrointestinal: Appendectomy, Bowel Surgery, Hernia Repair Genitourinary: No Pertinent History Musculoskeletal: Orthopedic Surgery Male Surgical History: Prostate Surgery Other Surgical History: TONSILS. BOWEL RESECTION. EGD. COLONSCOPIES. bilateral SHOULDER SURGERY. CATARACT SURGERIES - Social History Smoking Status: Former smoker How long have you smoked: 50 years Exposure to second hand smoke: No Alcohol Use: None Drug Use: none Patient Lives Alone: No Significant Family History: no pertinent family hx - Nursing Vital Signs Nursing Vital Signs: Initial Vital Signs Temperature 97.5 F 02/07/17 02:13 Pulse Rate 48 L 02/07/17 02:13 Respiratory Rate 14 02/07/17 02:13 Blood Pressure 160/99 02/07/17 02:13 O2 Sat by Pulse Oximetry 96 02/07/17 02:13 Pain Scale Pain Intensity 8 - Physical Exam General Appearance: mild distress, alert Eye Exam: PERRL/EOMI, eyes nml inspection Ears, Nose, Throat Exam: normal ENT inspection, pharynx normal, moist mucous membranes Neck Exam: normal inspection, non-tender, supple, full range of motion Respiratory Exam: normal breath sounds, lungs clear, No respiratory distress Cardiovascular Exam: regular rate/rhythm, normal heart sounds Gastrointestinal/Abdomen Exam: soft, tenderness, No distention, No mass, No guarding, No rebound Male Genitalia Exam: normal genitalia Back Exam: normal inspection, normal range of motion, No CVA tenderness, No vertebral tenderness Extremity Exam: normal inspection, normal range of motion, pelvis stable Neurologic Exam: disoriented, No motor deficits Skin Exam: normal color, warm, dry SpO2: 96 Oxygen Delivery: Room Air - Course Nursing assessment & vital signs reviewed: Yes - Radiology Exams Chest X-ray Interpretation: Reviewed by me, Negative (high grade bowel obstruction) - CT Exams Abdomen CT Interpretation: Tele-radiologist Report Ordered Tests: Active Orders 24 hr Category Date Time Status Catheter-Manor Verma STAT Care 02/07/17 02:21 Active Oxygen-ED Only NASAL CANNULA 2 lpm Care 02/07/17 02:21 Active ABDOMEN AND PELVIS W/0 CONTRAS [CT] Stat Exams 02/07/17 02:22 Taken CHEST 1 VIEW (PORTABLE) Stat Exams 02/07/17 02:22 Taken CBC W DIFF Stat Lab 02/07/17 02:42 Completed CMP Stat Lab 02/07/17 02:42 Completed CULTURE,URINE Stat Lab 02/07/17 02:42 Received Lactic Acid Stat Lab 02/07/17 02:40 Results Manual Differential NC Stat Lab 02/07/17 02:42 Completed UA W/ MICROSCOPIC Stat Lab 02/07/17 02:42 Completed Medication Summary Discontinued Medications Generic Name Dose Route Start Last Admin Trade Name Freq PRN Reason Stop Dose Admin Sodium Chloride 1,000 mls @ 999 mls/hr 02/07/17 02:21 02/07/17 02:31 Sodium Chloride 0.9% 1000 Ml IV 02/07/17 03:21 999 mls/hr .Q1H1M STA Administration Sodium Chloride Confirm 02/07/17 02:30 Sodium Chloride 0.9% 1000 Ml Administered 02/07/17 02:31 Dose 1,000 mls @ ud .ROUTE .STK-MED ONE Ondansetron HCl 4 mg 02/07/17 02:21 02/07/17 02:31 Zofran 4 Mg/2 Ml Vial IV 02/07/17 02:22 4 mg STAT STA Administration Ondansetron HCl Confirm 02/07/17 02:30 Zofran 4 Mg/2 Ml Vial Administered 02/07/17 02:31 Dose 4 mg .ROUTE .STK-MED ONE Promethazine HCl 12.5 mg 02/07/17 02:51 02/07/17 02:53 Phenergan 25 Mg Inj IV 02/07/17 02:52 12.5 mg STAT ONE Administration Promethazine HCl Confirm 02/07/17 02:52 Phenergan 25 Mg Inj Administered 02/07/17 02:53 Dose 25 mg .ROUTE .STK-MED ONE Lab/Rad Data: Laboratory Result Diagrams 02/07/17 02:42 02/07/17 02:42 Laboratory Results 02/07/17 02/07/17 02/07/17 Range/Units 02:42 02:42 02:42 WBC 18.5 H (4.0-10.5) K/mm3 RBC 5.64 H (4.1-5.6) M/mm3 Hgb 14.2 (12.5-18.0) gm/dl Hct 44.3 (42-50) % MCV 78.5 (78-100) fl MCH 25.1 L (26-32) pg MCHC 32.1 (32-36) g/dl RDW 15.5 H (11.5-14.0) % Plt Count 454 H (150-450) K/mm3 MPV 8.2 (6-9.5) fl Segmented Neutrophils 76 H (36.-66.) % Band Neutrophils 3 H (0.0-2.0) % Lymphocytes (Manual) 12 L (24-44) % Monocytes (Manual) 1 (0.0-12.0) % Eosinophils (Manual) 1 (0.00-3.0) % Differential Comment ABNORMAL Atypical Lymphocytes 7 % Platelet Estimate NORMAL (NORMAL) Hypochromasia 1+ Poikilocytosis 1+ Ovalocytes 1+ Sodium 137 (136-145) mEq/L Potassium 4.3 (3.5-5.1) mEq/L Chloride 99 (98-107) mEq/L Carbon Dioxide 29.4 (21-32) mEq/L Anion Gap 13.3 (5-15) MEQ/L BUN 19 (9-20) mg/dL Creatinine 1.32 H (0.55-1.30) mg/dl Estimated GFR 54 ML/MIN Glucose 112 H (70-110) MG/DL Lactic Acid (0.4-2.0) Calcium 9.6 (8.5-10.1) mg/dL Total Bilirubin 0.50 (0.2-1.0) mg/dL AST 18 (15-37) U/L ALT 7 L (12-78) U/L Alkaline Phosphatase 77 (46-116) U/L Serum Total Protein 7.1 (6.4-8.2) gm/dL Albumin 2.6 L (3.4-5.0) g/dL Ur Collection Type Urine Color (YELLOW) Urine Appearance (CLEAR) Urine pH (5-6) Ur Specific Larn[place] (1.005-1.025) Urine Protein (Negative) Urine Ketones (NEGATIVE) Urine Blood (0-5) Cameron/ul Urine Nitrite (NEGATIVE) Urine Bilirubin (NEGATIVE) Urine Urobilinogen (0-1) mg/dL Ur Leukocyte Esterase (NEGATIVE) Urine Microscopic RBC (0-2) /HPF Urine Microscopic WBC (0-5) /HPF Ur Epithelial Cells (FEW) /HPF Calcium Oxalate Crystal (NEGATIVE) /HPF Urine Bacteria (NEGATIVE) /HPF Urine Mucus (NEGATIVE) /HPF Urine Yeast (NEGATIVE) /HPF Urine Culture Reflexed (NO) Urine Glucose (NEGATIVE) mg/dL Influenza Type A Ag NEGATIVE (NEGATIVE) Influenza Type B Ag NEGATIVE (NEGATIVE) RSV (PCR) NEGATIVE (Negative) Specimen Received 02/07/17 02/07/17 Range/Units 02:42 02:40 WBC (4.0-10.5) K/mm3 RBC (4.1-5.6) M/mm3 Hgb (12.5-18.0) gm/dl Hct (42-50) % MCV (78-100) fl MCH (26-32) pg MCHC (32-36) g/dl RDW (11.5-14.0) % Plt Count (150-450) K/mm3 MPV (6-9.5) fl Segmented Neutrophils (36.-66.) % Band Neutrophils (0.0-2.0) % Lymphocytes (Manual) (24-44) % Monocytes (Manual) (0.0-12.0) % Eosinophils (Manual) (0.00-3.0) % Differential Comment Atypical Lymphocytes % Platelet Estimate (NORMAL) Hypochromasia Poikilocytosis Ovalocytes Sodium (136-145) mEq/L Potassium (3.5-5.1) mEq/L Chloride (98-107) mEq/L Carbon Dioxide (21-32) mEq/L Anion Gap (5-15) MEQ/L BUN (9-20) mg/dL Creatinine (0.55-1.30) mg/dl Estimated GFR ML/MIN Glucose (70-110) MG/DL Lactic Acid 2.7 H (0.4-2.0) Calcium (8.5-10.1) mg/dL Total Bilirubin (0.2-1.0) mg/dL AST (15-37) U/L ALT (12-78) U/L Alkaline Phosphatase (46-116) U/L Serum Total Protein (6.4-8.2) gm/dL Albumin (3.4-5.0) g/dL Ur Collection Type INDWELLING CATH Urine Color DARK YELLOW (YELLOW) Urine Appearance CLOUDY (CLEAR) Urine pH 2 (5-6) Ur Specific L[place] 1.025 (1.005-1.025) Urine Protein 30 (Negative) Urine Ketones SMALL (NEGATIVE) Urine Blood 250 (0-5) Cameron/ul Urine Nitrite POSITIVE (NEGATIVE) Urine Bilirubin NEGATIVE (NEGATIVE) Urine Urobilinogen NORMAL (0-1) mg/dL Ur Leukocyte Esterase 2+ (NEGATIVE) Urine Microscopic RBC 10-15 (0-2) /HPF Urine Microscopic WBC 50-100 (0-5) /HPF Ur Epithelial Cells FEW (FEW) /HPF Calcium Oxalate Crystal 2-5 (NEGATIVE) /HPF Urine Bacteria MODERATE (NEGATIVE) /HPF Urine Mucus SLIGHT (NEGATIVE) /HPF Urine Yeast MODERATE (NEGATIVE) /HPF Urine Culture Reflexed YES (NO) Urine Glucose NEGATIVE (NEGATIVE) mg/dL Influenza Type A Ag (NEGATIVE) Influenza Type B Ag (NEGATIVE) RSV (PCR) (Negative) Specimen Received 02/07/17 0240 - Progress Progress: unchanged Discussed with : Brittny Will see patient in: hospital (observation) Counseled pt/family regarding: lab results, diagnosis, need for follow-up - Departure Time of Disposition: 03:49 Departure Disposition: Observation Clinical Impression: Small bowel obstruction Condition: Stable Critical Care Time: Yes Critical Care Time(excluding separately billable procedures): 30-74 minutes Referrals: ZOHREH BARROS [Primary Care Provider] -
[2017-02-07 02:47] LABS: Granulocyte Absolute (ANC) 13.94 (1.4-6.9); Hematocrit 44.3 % (42-50); Hemoglobin 14.2 gm/dl (12.5-18.0); Mean Cell Volume 78.5 fl (78-100); Mean Corpuscular Hgb Concent. 32.1 g/dl (32-36); Mean Platelet Volume 8.2 fl (6-9.5); Platelet Count 454 K/mm3 (150-450); Red Blood Count 5.64 M/mm3 (4.1-5.6); Red Cell Distribution Width 15.5 % (11.5-14.0); White Blood Count 18.5 K/mm3 (4.0-10.5)
[2017-02-07] MEDS ORDERED: Phenergan 25 MG INJ IV ONE (02:51)
[2017-02-07 02:52] LABS: Mean Corpuscular Hemoglobin 25.1 pg (26-32)
[2017-02-07] MEDS ORDERED: Phenergan 25 MG INJ ONE (02:52)
[2017-02-07 03:01] LABS: Appearance CLOUDY (CLEAR); Leukocyte Esterase 2+ (NEGATIVE); Nitrite POSITIVE (NEGATIVE); Ph 2 (5-6); Specific Gravity 1.025 (1.005-1.025)
[2017-02-07 03:02] LABS: Bacteria MODERATE /HPF (NEGATIVE); Bilirubin NEGATIVE (NEGATIVE); Blood 250 Ery/ul (0-5); Epithelial Cells FEW /HPF (FEW); Glucose NEGATIVE (NEGATIVE); Ketones SMALL (NEGATIVE); Mucus SLIGHT /HPF (NEGATIVE); Protein,Urine Dip 30 (Negative); Urobilinogen NORMAL mg/dL (0-1); WBC 50-100 /HPF (0-5); Yeast MODERATE /HPF (NEGATIVE)
[2017-02-07 03:04] LABS: Lactic Acid 2.7 (0.4-2.0)
[2017-02-07 03:15] LABS: ALBUMIN 2.6 g/dL (3.4-5.0); ANION GAP 13.3 MEQ/L (5-15); BILIRUBIN,TOTAL 0.5 mg/dL (0.2-1.0); Calcium 9.6 mg/dL (8.5-10.1); Carbon Dioxide 29.4 mEq/L (21-32); Creatinine 1 1.32 mg/dl (0.55-1.30); Potassium 4.3 mEq/L (3.5-5.1); Total Protein 7.1 gm/dL (6.4-8.2)
[2017-02-07 03:21] LABS: ATYPICAL LYMPHS 7 %; BAND 3 % (0.0-2.0); Eosinophil 1 % (0.00-3.0); Lymphocytes 12 % (24-44); Monocyte 1 % (0.0-12.0); Neutrophils 76 % (36.-66.); Total Cells Counted 100
[2017-02-07 03:22] LABS: Hypochromia 1+; Ovalocytes 1+; Platelet Estimate NORMAL (NORMAL); Poikilocytosis 1+
[2017-02-07 03:48] LABS: INFLUENZA A NEGATIVE (NEGATIVE); INFLUENZA B NEGATIVE (NEGATIVE); RESPIRATORY SYNCTIAL VIRUS NEGATIVE (Negative)
[2017-02-07] MEDS ORDERED: Phenergan 25 MG INJ IM PRN (05:26)
[2017-02-07] MEDS ORDERED: Sodium Chloride 0.9% W/ 20 mEq KCl/LITER 1,000 ML IV SCH (05:26)
[2017-02-07] MEDS ORDERED: MORPHINE SULFATE 4 MG INJ IV PRN (05:26)
[2017-02-07] MEDS ORDERED: Sodium Chloride 0.9% 1000 ML 0 ML ONE (05:32)
[2017-02-07] MEDS ORDERED: Morphine PCA 1 MG/ML 30 ML IV PRN (06:53)
[2017-02-07 07:51] VITALS: BP 130/60; PULSE 45
--- NOTE | 2017-02-07 09:24 | PCM.HP ---
History of Present Illness - Chief Complaint Chief Complaint: SBO History of Present Illness: is a 89 year old male who presented to the ER early this morning with a 1 day history of severe abdominal pain and vomiting that began abruptly. He had a complicated medical history including parkinsonism, COPD, prostate cancer, GERD and required surgery for a bowel obstruction in [address] Vivar. He was admitted to the floor with a morphine SECURITY SPECIALIST, he is writhing in pain. Nursing has attempted to place an NG x2 and unsuccessful. The family is requesting transfer to [place], they report that last admission he had to have an NG placed via a scope procedure. - Review of Systems Respiratory: No Cough, No Short Of Breath Cardiac: No Chest Pain, No Edema, No Syncope Abdominal/Gastrointestinal: Abdominal Pain, Nausea, Vomiting Musculoskeletal: Joint Pain Skin: No Rash All Other Systems: Reviewed and Negative Medications & Allergies Home Medications: Home Medication List Albuterol Sulfate [Albuterol Sulfate Hfa] 2 puffs IH QID PRN PRN #0 10/29/11 [ History Confirmed 02/07/17] Albuterol/Ipratropium 3ml Neb* [DUONEB 0.5-3 MG/3 ml Neb] 3 ml NEBULIZE QID # 0 10/29/11 [History Confirmed 02/07/17] Prednisone 5 mg [Deltasone 5 mg] 20 mg PO DAILY #0 10/29/11 [History Confirmed 02/07/17] Tamsulosin HCl [Flomax] 0.4 mg PO QHS 04/14/15 [History Confirmed 02/07/17] Lactulose 15 gm PO DAILY 06/12/15 [History Confirmed 02/07/17] Oxycodone HCl/Acetaminophen [Percocet 10-325 mg Tablet] 1 ea PO Q4HPRN PRN 11/26 [History Confirmed 02/07/17] Triamcinolone Acetonide [Nasacort] 2 spray IH HS 11/27/15 [History Confirmed 02/24] Calcium Carbonate/Mag Hydrox [Mylanta Ultra Chew Tab] 1 each PO AC 06/20/16 [ History Confirmed 02/07/17] Carbidopa/Levodopa [Sinemet 25-250 mg Tablet] 1 each PO QID 06/20/16 [History Confirmed 02/07/17] Docusate Sodium 100 mg [Colace 100 MG] 100 mg PO BID 06/20/16 [History Confirmed 02/07/17] Duloxetine HCl 30 mg [Cymbalta 30 MG Capsule] 30 mg PO DAILY 06/20/16 [ History Confirmed 02/07/17] Methadone HCl 10 mg [DOLOPHINE 10MG Tablet] 5 mg PO TID 06/20/16 [History Confirmed 02/07/17] Ondansetron HCl [Zofran] 4 mg PO Q6HPRN PRN 06/20/16 [History Confirmed 02/07/17 ] Fluticasone/Salmeterol [Advair 250-50 Diskus] 1 puff IH BID 01/29/17 [History Confirmed 02/07/17] Apixaban [Eliquis] 2.5 mg PO BID 02/07/17 [History Confirmed 02/07/17] Ceftriaxone Sodium 500 mg [Rocephin 500 MG INJ] 250 mg IM DAILY 02/07/17 [ History Confirmed 02/07/17] Allergies/Adverse Reactions: Allergies Allergy/AdvReac Type Severity Reaction Status Date / Time oxybutynin Allergy Intermediate Verified 01/29/17 19:39 ceftriaxone sodium Allergy Mild Verified 01/29/17 19:39 [From Rocephin] peanut Allergy Mild Rash Verified 01/29/17 19:39 Penicillins Allergy Mild Verified 01/29/17 19:39 primidone Allergy Mild Swelling Verified 01/29/17 19:39 selegiline Allergy Mild Swelling Verified 01/29/17 19:39 topiramate Allergy Mild Swelling Verified 01/29/17 19:39 famotidine Allergy Verified 01/29/17 19:39 gabapentin Allergy Verified 01/29/17 19:39 levomilnacipran HCl Allergy Verified 01/29/17 19:39 [From Fetzima] nitrofurantoin Allergy Verified 01/29/17 19:39 [From Macrobid] nitrofurantoin Allergy Verified 01/29/17 19:39 macrocrystalline [From Macrobid] nitroglycerin Allergy Verified 01/29/17 19:39 leflunomide AdvReac Intermediate Verified 01/29/17 19:39 Sulfa (Sulfonamide AdvReac Mild Verified 01/29/17 19:39 Antibiotics) [Sulfa(Sulfonamide Antibiotics)] vancomycin AdvReac Mild Verified 01/29/17 19:39 escitalopram [From Lexapro] AdvReac Verified 01/29/17 19:39 meperidine HCl [From Demerol] AdvReac Verified 01/29/17 19:39 pantoprazole sodium AdvReac Verified 01/29/17 19:39 [From Protonix] - Past Medical History Past Medical History: Yes Neurological History: Peripheral Neuropathy, Other ENT History: Cataracts Cardiac History: Arrhythmia Respiratory History: Asthma, COPD Endocrine Medical History: No Pertinent History Musculoskelatal History: Osteoarthritis, Rheumatoid Arthritis, Other GI Medical History: Diverticulitis, GERD, Hemorrhoids, Hernia History: Other Pyscho-Social History: Depression Male Reproductive Disorders: Prostate Cancer Comment: PARKINSON'S, NEUROPATHY, SPINAL STENOSIS, PROSTATE CANCER, SKIN CANCER , torn rotator cuff in right shoulder - Past Surgical History Past Surgical History: Yes (colon obstruction 2014,) Neuro Surgical History: No Pertinent History Cardiac History: Cardiac Catheterization Respiratory Surgery: No Pertinent History GI Surgical History: Appendectomy, Bowel Surgery, Hernia Repair Genitourinary Surgical Hx: No Pertinent History Musculskeletal Surgical Hx: Orthopedic Surgery Male Surgical History: Prostate Surgery Other Surgical History: TONSILS. BOWEL RESECTION. EGD. COLONSCOPIES. bilateral SHOULDER SURGERY. CATARACT SURGERIES - Social History Smoking Status: Former smoker How long have you smoked: 50 years Exposure to second hand smoke: No Alcohol: None Drug Use: none Significant Family History: no pertinent family hx - Physical Exam Vital Signs: Vital Signs - 24 hr Temp Pulse Resp BP Pulse Ox 02/07/17 08:10 96 02/07/17 08:00 98.8 F 45 L 130/60 96 02/07/17 06:59 98.8 F 45 L 28 H 130/60 96 02/07/17 03:49 96 02/07/17 02:13 97.5 F 48 L 14 160/99 96 Oxygen-Last 24 hours O2 Percentage 2 Liters = 28% General Appearance: moderate distress, cachetic Neurologic Exam: alert Eye Exam: PERRL/EOMI, eyes nml inspection Respiratory Exam: normal breath sounds, lungs clear, No respiratory distress Cardiovascular Exam: regular rate/rhythm, normal heart sounds, normal peripheral pulses Gastrointestinal/Abdomen Exam: tenderness, distention, No normal bowel sounds Extremity Exam: normal inspection, normal range of motion, pelvis stable Skin Exam: normal color, warm, dry, No rash Assessment/Plan (1) Small bowel obstruction Current Visit: Yes Status: Acute Assessment & Plan: per family request will contact hospitalist at [facility] to arrange for transfer for higher level of care since we are unable to place NG tube here. will update Dr Diaz and will discuss with Dr Garcia hospitalist at [facility] for transfer. Code(s): K56.69 - OTHER INTESTINAL OBSTRUCTION * DO NOT USE * (2) Abdominal pain Current Visit: No Status: Acute Code(s): R10.9 - UNSPECIFIED ABDOMINAL PAIN (3) Acute urinary retention Current Visit: No Status: Acute Code(s): R33.8 - OTHER RETENTION OF URINE (4) Parkinson's disease Current Visit: No Status: Chronic Code(s): G20 - PARKINSON'S DISEASE
--- NOTE | 2017-02-07 09:25 | XRAY ---
Indication: Abdominal pain and vomiting. History of prostate cancer. Multiple contiguous axial images obtained through the abdomen and pelvis without contrast as ordered. Comparison: October 04, 2016. Lung bases again hyperinflated with bilateral fibrosis/scarring. Heart is not enlarged. Again previous right hemicolectomy with mild/moderate diffuse fecal stasis. Small bowel loops are again abnormally fluid distended up to 5.5 cm with synchronous fluid leveling favoring ileus. Several pelvic small bowel loops are more normal in caliber. Findings concerning for distal small bowel loop junction versus ileus. No free fluid/air. New Verma catheter empties the urinary bladder. Previous fatty right inguinal hernia now fluid-filled with incompletely visualized right scrotal hydrocele. Stable nonobstructing left renal punctate calculus, bilateral renal cysts, scattered calcified splenic granulomas, and prostate radiation seeds. Remaining liver, gallbladder, pancreas, spleen, adrenal glands, kidneys, ureters, and bladder appear unremarkable for noncontrast exam. Stable heavy aortoiliac calcifications without AAA. Osseous structures again demonstrates multilevel spinal degenerative spondylosis, L5 spondylolysis with grade 1 spondylolisthesis, levorotoscoliosis, and degenerative changes of both hips. Impression: 1. Again abnormal fluid distended small bowel loops with synchronous fluid leveling. Pelvic small bowel loops are normal in caliber. Rule out distal small bowel obstruction versus ileus. 2. Stable nonobstructing left renal micro-calculus, bilateral renal cysts, right inguinal hernia, and evidence for old granulomatous disease. 3. Stable multilevel spinal degenerative spondylosis, scoliosis, L5 spondylolysis with grade 1 spondylolisthesis, and degenerative changes of both hips. Comment: Preliminary interpretation was made by [facility]. No critical discrepancy. CTDI 16.26
--- NOTE | 2017-02-07 09:27 | XRAY ---
Indication: Fever, chills, and vomiting. Abdominal pain. Comparison: June 25, 2016. Portable chest again hyperinflated with right base atelectasis/scarring and a few scattered calcified granulomas. No focal infiltrate, consolidation, or large effusion. Heart is not enlarged. Bony thorax intact again with osteopenia, degenerative changes, and right shoulder arthroplasty. Impression: Nonacute hyperinflated chest with chronic features.
--- NOTE | 2017-02-07 09:31 | XRAY ---
Indication: NG tube placement. Limited KUB centered lower chest/upper abdomen demonstrates NG tube tip in the right lower lobe bronchus. Recommend withdrawal with repeat attempt. Comment: Dr. Sheikh in the ER and the patient's floor nurse is aware of the above.
--- NOTE | 2017-02-07 09:32 | XRAY ---
Indication: Repeat NG tube placement. Comparison: Taken earlier in the day. Portable chest unchanged again with NG tube tip in the right lower lobe bronchus. No new/acute cardiopulmonary abnormalities.
== END 2017-02-07 11:15 | disposition short-term general hospital (02) ==
LOC: ED 02:10 → MED SURG 05:12
PROVIDERS: ADMIT Family Medicine; ATTEND Family Medicine
DX: K56.609 Unspecified intestinal obstruction, unspecified as to partial versus complete obstruction (principal); R33.8 Other retention of urine; G20 Parkinson's disease; Z79.899 Other long term (current) drug therapy
CPT/HCPCS: 36415; 51702; 71045; 74018; 74176; 80053; 81000; 83036; 83605; 84134; 85025; 87077; 87086; 87186; 87631; 93268; 96360; 96374; 99285; G0378; J2270; J2405; J2550